=== PATIENT | male | born 1960 | race Hispanic/Latino ===

== ENCOUNTER 2016-10-31 12:06 | Emergency (ER) | payer MEDICAID, OTHER ==
[2016-10-31 12:32] VITALS: BMI 23.4
[2016-10-31 13:11] LABS: BASO # 0.1 K/uL (0.0-0.2); EOS # 0.3 K/uL (0.0-0.7); EOS % 4.4 % (0.0-4.0); HEMATOCRIT 34.6 % (35.0-51.0); LYMPH # 1.4 K/uL (1.0-4.3); LYMPH % 22.7 % (20.0-40.0); MEAN CELL VOLUME 86.6 fL (80.0-94.0); MEAN CORPUSCULAR HEMOGLOBIN 28.5 pg (27.0-31.0); MEAN CORPUSCULAR HGB CONC 32.9 g/dL (33.0-37.0); MEAN PLATELET VOLUME 7.4 fL (7.2-11.7); MONO # 0.7 K/uL (0.0-0.8); MONO % 10.9 % (0.0-10.0); RED CELL DISTRIBUTION WIDTH 14.8 % (11.5-14.5); WHITE BLOOD COUNT 6.3 K/uL (4.8-10.8)
--- NOTE | 2016-10-31 13:23 | C.PDOC ---
History Of Present Illness 56 y/o male presents to ED with complaints of lower extremities weakness as per EMS. Patient was found wondering the streets appearing to have an unsteady gait. At ED patient admits to taken 3-4 Percocets for pain and to being an alcoholic. Patient has multiple chronic orthopedic injuries such as Fracture to right clavicle and bilateral damage to knees. Patient denies N/V/D, [place], Fever or any other complaints at this time. Time Seen by Provider: 10/31/16 12:09 Chief Complaint (Nursing): Substance Abuse History Per: Patient History/Exam Limitations: no limitations Onset/Duration Of Symptoms: Hrs Current Symptoms Are (Timing): Still Present Modifying Factor(s): Alcohol Past Medical History Reviewed: Historical Data, Nursing Documentation, Vital Signs Vital Signs: Last Vital Signs Temp 98.5 F 10/31/16 12:31 Pulse 100 H 10/31/16 13:09 Resp 12 10/31/16 13:09 BP 101/98 H 10/31/16 13:09 Pulse Ox 94 L 10/31/16 14:35 - Medical History PMH: Anxiety, Arthritis, Asthma, COPD, Depression, Emphysema Family History: States: No Known Family Hx - Social History Hx Tobacco Use: Yes Hx Alcohol Use: No Hx Substance Use: Yes - Immunization History Hx Tetanus Toxoid Vaccination: No Hx Influenza Vaccination: Yes Hx Pneumococcal Vaccination: Yes Review Of Systems Except As Marked, All Systems Reviewed And Found Negative. Constitutional: Negative for: Fever, Chills Gastrointestinal: Negative for: Nausea, Vomiting, Diarrhea Skin: Negative for: Rash Neurological: Positive for: Weakness. Negative for: Numbness, Headache Physical Exam - Physical Exam Appears: Unkempt Skin: Warm Head: Atraumatic, Normacephalic Eye(s): bilateral: Normal Inspection Oral Mucosa: Moist Neck: Normal ROM Cardiovascular: Rhythm Regular, No Murmur Respiratory: Normal Breath Sounds, No Rales, No Rhonchi, No Wheezing Gastrointestinal/Abdominal: Soft, No Tenderness, No Guarding, No Rebound Extremity: Normal ROM, Deformity (Deformity to Right Clavicle), Other (Scars over both knees) Neurological/Psych: Oriented x3, Normal Motor, Normal Sensation, Normal Reflexes ED Course And Treatment - Laboratory Results Result Diagrams: 10/31/16 13:06 10/31/16 13:06 O2 Sat by Pulse Oximetry: 94 (RA) Pulse Ox Interpretation: Normal Medical Decision Making Medical Decision Making: Patient slept. Now has no complaints, requesting to go home. Disposition - Disposition Referrals: [facility] [Outside] Disposition: HOME/ ROUTINE Disposition Time: 14:41 Condition: STABLE Instructions: Weakness (ED) Forms: General Discharge Instructions - POA Present On Arrival: None - Clinical Impression Clinical Impression: Weakness - Scribe Statement The provider has reviewed the documentation as recorded by the Scribtian Neely All medical record entries made by the Scribe were at my direction and personally dictated by me. I have reviewed the chart and agree that the record accurately reflects my personal performance of the history, physical exam, medical decision making, and the department course for this patient. I have also personally directed, reviewed, and agree with the discharge instructions and disposition.
[2016-10-31 13:27] LABS: CHLORIDE 106 mmol/L (98-107); POTASSIUM 3.8 mmol/L (3.6-5.2); SODIUM 143 mmol/L (132-148)
[2016-10-31 13:29] LABS: BILIRUBIN,TOTAL 0.4 mg/dL (0.2-1.3); CARBON DIOXIDE 27 mmol/L (22-30); GFR AFRICAN-AMERICAN > 60
[2016-10-31 13:30] LABS: ALB/GLOB RATIO 1.2 (1.0-2.1); ALCOHOL SERUM < 10 mg/dl (0-10); ALKALINE PHOSPHATASE 85 U/L (38-126); ALT/SGPT 19 U/L (21-72); AST/SGOT 23 U/L (17-59); BLOOD UREA NITROGEN 18 mg/dL (9-20); CALCIUM 9.6 mg/dl (8.6-10.4); GLUCOSE,RANDOM 87 mg/dL (75-110); TOTAL PROTEIN 6.7 g/dL (6.3-8.3)
[2016-10-31 15:14] VITALS: BP 113/65; PULSE 89; RESP 14; TEMP 97.9; O2SAT 99
== END 2016-10-31 15:15 | disposition home or self-care (01) ==
LOC: C.ER 12:06
DX: R53.1 Weakness (principal); M19.90 Unspecified osteoarthritis, unspecified site

== ENCOUNTER 2016-12-16 20:03 | Observation (INO) | payer OTHER ==
[2016-12-16 20:03] VITALS: BMI 23.4
--- NOTE | 2016-12-16 20:09 | C.PDOC ---
History Of Present Illness Patient brought to the ER via EMS after being found on the street lethargic. Patient is somewhat arousable, states he used xanax. Denies suicidal ideation or homicidal ideation. Time Seen by Provider: 12/16/16 20:09 Chief Complaint (Nursing): Substance Abuse History Per: Patient History/Exam Limitations: no limitations Onset/Duration Of Symptoms: Hrs Current Symptoms Are (Timing): Still Present Suicide/Self Injury Attempted (Context): None Modifying Factor(s): Other (Xanax) Severity: None Pain Scale Rating Of: 0 Associated Symptoms: denies: Suicidal Thoughts, Suicidal Plan Involuntary Hold By: None Recent travel outside of the [place]: No Past Medical History Reviewed: Historical Data, Nursing Documentation, Vital Signs Vital Signs: Last Vital Signs Temp Pulse 79 12/17/16 04:12 Resp 86 H 12/17/16 04:12 BP 85/46 L 12/17/16 04:12 Pulse Ox 97 12/17/16 04:12 - Medical History PMH: Anxiety, Arthritis, Asthma, COPD, Depression, Emphysema Surgical History: No Surg Hx Family History: States: No Known Family Hx - Social History Hx Tobacco Use: Yes Hx Alcohol Use: No Hx Substance Use: Yes - Immunization History Hx Tetanus Toxoid Vaccination: No Hx Influenza Vaccination: Yes Hx Pneumococcal Vaccination: Yes Review Of Systems Constitutional: Positive for: Other (Lethargic). Negative for: Fever, Chills Gastrointestinal: Negative for: Nausea, Vomiting, Diarrhea Psych: Negative for: Suicidal ideation Physical Exam - Physical Exam Appears: Non-toxic, Other (Slow to respond) Skin: Warm, Dry Head: Normacephalic, Laceration (Healing over right eyebrow) Oral Mucosa: Moist Chest: Symmetrical, No Tenderness Cardiovascular: Rhythm Regular, No Murmur Respiratory: No Rales, No Rhonchi, No Wheezing Gastrointestinal/Abdominal: Soft, No Tenderness Neurological/Psych: Oriented x3 ED Course And Treatment - Laboratory Results Result Diagrams: 12/16/16 20:18 12/16/16 20:18 O2 Sat by Pulse Oximetry: 100 Pulse Ox Interpretation: Normal - Radiology CXR: Interpreted by Me, Viewed By Me Progress Note: Blood work and urinalysis ordered. IV fluids administered. pt is arousable, answers questions appropriately. 11:05 vitals stable Reevaluation Time: 05:46 Reassessment Condition: Improved ED OBSERVATION Discharge: Yes Date of observation admission: 12/16/16 Time of observation admission: 23:03 - Observation admission statement Patient is being placed in observation because:: xanax od - Goals of Observation Goals of observation are:: sobriety - Progress Note Progress Note: 12/16/16 23:03 vitals stable 12/17/16 01:10 vitals stable, arousable 12/17/16 03:10 no complaints Disposition Counseled Patient/Family Regarding: Studies Performed, Diagnosis, Need For Followup - Disposition Disposition: HOME/ ROUTINE Disposition Time: 20:09 Condition: FAIR - Clinical Impression Clinical Impression: Drug abuse, OD (overdose of drug) - Scribe Statement The provider has reviewed the documentation as recorded by the Scribtian Hays All medical record entries made by the Jonnyibtian were at my direction and personally dictated by me. I have reviewed the chart and agree that the record accurately reflects my personal performance of the history, physical exam, medical decision making, and the department course for this patient. I have also personally directed, reviewed, and agree with the discharge instructions and disposition.
[2016-12-16] MEDS ORDERED: Sodium Chloride 0.9% 1,000 ML ONE (20:11)
[2016-12-16] MEDS ORDERED: Sodium Chloride 0.9% 2,000 ML IV ONE (20:15)
[2016-12-16 20:21] LABS: BASO # 0.1 K/uL (0.0-0.2); BASO % 0.8 % (0.0-2.0); EOS # 0.3 K/uL (0.0-0.7); EOS % 3.9 % (0.0-4.0); HEMATOCRIT 38.5 % (35.0-51.0); LYMPH # 1.3 K/uL (1.0-4.3); LYMPH % 17.9 % (20.0-40.0); MEAN CELL VOLUME 85.2 fL (80.0-94.0); MEAN CORPUSCULAR HEMOGLOBIN 28.2 pg (27.0-31.0); MEAN PLATELET VOLUME 7.1 fL (7.2-11.7); MONO # 0.8 K/uL (0.0-0.8); MONO % 11.5 % (0.0-10.0); NRBC % 0.1 % (0.0-2.0); RED CELL DISTRIBUTION WIDTH 15.1 % (11.5-14.5); WHITE BLOOD COUNT 7.3 K/uL (4.8-10.8)
[2016-12-16 21:22] LABS: CHLORIDE 97 mmol/L (98-107); POTASSIUM 3.9 mmol/L (3.6-5.2); SODIUM 137 mmol/L (132-148)
[2016-12-16 21:24] LABS: ALB/GLOB RATIO 1.1 (1.0-2.1); ALKALINE PHOSPHATASE 95 U/L (38-126); AST/SGOT 46 U/L (17-59); BILIRUBIN,TOTAL 0.7 mg/dL (0.2-1.3); CARBON DIOXIDE 29 mmol/L (22-30); GFR AFRICAN-AMERICAN > 60; TOTAL PROTEIN 6.7 g/dL (6.3-8.3)
[2016-12-16 21:25] LABS: ALCOHOL SERUM < 10 mg/dl (0-10); ALT/SGPT 34 U/L (21-72); BLOOD UREA NITROGEN 15 mg/dL (9-20); CALCIUM 9.1 mg/dl (8.6-10.4); GLUCOSE,RANDOM 90 mg/dL (75-110)
[2016-12-16] MEDS ORDERED: Sodium Chloride 0.9% 2,000 ML ONE (22:48)
[2016-12-16] MEDS ORDERED: Sodium Chloride 0.9% 1,000 ML IV ONE (22:52)
[2016-12-17 06:09] VITALS: BP 96/56; PULSE 75; RESP 18; O2SAT 96
== END 2016-12-17 05:46 | disposition home or self-care (01) ==
LOC: C.ER 20:03 → C.9OBSV 23:03
PROVIDERS: ADMIT Emergency Medicine; ATTEND Emergency Medicine
DX: T42.4X4A Poisoning by benzodiazepines, undetermined, initial encounter (principal); R53.83 Other fatigue; F19.188 Other psychoactive substance abuse with other psychoactive substance-induced disorder; F41.9 Anxiety disorder, unspecified; J45.909 Unspecified asthma, uncomplicated; F32.9 Major depressive disorder, single episode, unspecified; J43.9 Emphysema, unspecified; F17.210 Nicotine dependence, cigarettes, uncomplicated
CPT/HCPCS: 80053; 80320; 82948; 85025; 96360; 96361; G0378; J7040

== ENCOUNTER 2017-02-20 10:47 | Inpatient (IN) | payer MEDICAID, OTHER ==
[2017-02-20 10:47] VITALS: BMI 23.4
--- NOTE | 2017-02-20 11:09 | C.PDOC ---
History Of Present Illness 56 yr old male presents to the ER with complaints of recurring suicidal ideation with a plan and depression. Patient reports last herpin use was last night and Xanax several days ago. Patient denies alcohol use, IVDA, prior evaluation of OD and psych. Also denies chest pain, SOB, nausea, vomiting or headache. CO RECUR SUICIDAL IDEATION, DEPRESSION. +PLAN. LAST HEROIN LAST NIGHT, XANAX SEV DAYS AGO. DENIES ETOH USE. DENIES IVDA. PRIOR EVAL FOR OD, PSYCH. ALSO CO GEN RASH X SEV MONTHS. +itch. DENIES IVDA, SKIN POPPING. EXAM MILD DIST NONTOXIC PSYCH +SI. NO ACUTE INTOX. CALM COOPERATIVE TEARFUL SKIN GEN EXCORIATIONS Time Seen by Provider: 02/20/17 10:57 Chief Complaint (Nursing): Psychiatric Evaluation History Per: Patient History/Exam Limitations: no limitations Onset/Duration Of Symptoms: Days Past Medical History Reviewed: Historical Data, Nursing Documentation, Vital Signs Vital Signs: Last Vital Signs Temp 97.8 F 02/20/17 13:08 Pulse 64 02/20/17 13:08 Resp 16 02/20/17 13:08 BP 96/61 L 02/20/17 13:08 Pulse Ox 99 02/20/17 13:08 - Medical History PMH: Anxiety, Arthritis, Asthma, COPD, Depression, Emphysema Family History: States: No Known Family Hx - Social History Hx Tobacco Use: Yes Hx Alcohol Use: Yes Hx Substance Use: Yes - Immunization History Hx Tetanus Toxoid Vaccination: No Hx Influenza Vaccination: Yes (01/2017) Hx Pneumococcal Vaccination: Yes Review Of Systems Except As Marked, All Systems Reviewed And Found Negative. Cardiovascular: Negative for: Chest Pain Respiratory: Negative for: Shortness of Breath Gastrointestinal: Negative for: Nausea, Vomiting Neurological: Negative for: Headache Psych: Positive for: Depression, Suicidal ideation Physical Exam - Physical Exam Appears: Non-toxic, In Acute Distress (Mild) Skin: Warm, Dry, No Rash, Other ((+) General excoriations.) Head: Atraumatic, Normacephalic Extremity: Normal ROM, No Swelling Neurological/Psych: Oriented x3, Normal Speech, Other (No acute intoxication. Calm. Cooperative. Tearful.) ED Course And Treatment - Laboratory Results Result Diagrams: 02/20/17 11:29 02/20/17 11:29 O2 Sat by Pulse Oximetry: 99 (RA) Pulse Ox Interpretation: Normal Progress - Re-Evaluation Re-evaluation Note: 02/20/17 12:44 EXMA [facility] PRIOR MED CLEAR FOR PSYCH EVAL. RECOMMEND MEDICINE CONSULT NEEDED FOR MANAGEMENT CHRONIC DERMATITIS, MOST LIKELY DUE TO HEROIN ABUSE. NO SIGNS INFECTIOUS/ COMMUNICABLE DERMATITIS. 02/20/17 12:44 CRISIS NOTIFIED - Data Reviewed Data Reviewed: Lab - Continuity of Care Discussed pt. case with telecommunications consultant/specialty: Psychiatry Medical Decision Making Medical Decision Making: PLAN: * Alcohol Serum * Drug Screen * CBC * CMP * Urinalysis Disposition Counseled Patient/Family Regarding: Studies Performed, Diagnosis - Disposition Disposition: HOSPITALIZED Disposition Time: 13:18 Condition: STABLE Forms: Wireless Safety (Swedish) - POA Present On Arrival: None - Clinical Impression Clinical Impression: Depression, Polysubstance abuse, Pruritic dermatitis - Scribe Statement The provider has reviewed the documentation as recorded by the Scribe Melissa Pena Provider Attestation: All medical record entries made by the Scribe were at my direction and personally dictated by me. I have reviewed the chart and agree that the record accurately reflects my personal performance of the history, physical exam, medical decision making, and the department course for this patient. I have also personally directed, reviewed, and agree with the discharge instructions and disposition. Decision To Admit - Pt Status Changed To: Hospital Disposition Of: Inpatient - Admit Certification Admit to Inpatient:: After my assessment, the patient will require hospitalization for at least two midnights. This is because of the severity of symptoms shown, intensity of services needed, and/or the medical risk in this patient being treated as an outpatient. - InPatient: Physician Admission Certification: I certify that this patient requires 2 or more midnights of care for the following reason:: SEE NOTE - . Bed Request Type: Psychiatry Admitting Physician: Viki Angela Patient Diagnosis: Depression, Polysubstance abuse, Pruritic dermatitis
[2017-02-20 11:33] LABS: BASO # 0.1 K/uL (0.0-0.2); BASO % 1.4 % (0.0-2.0); EOS # 0.4 K/uL (0.0-0.7); HEMATOCRIT 34.6 % (35.0-51.0); LYMPH # 1.3 K/uL (1.0-4.3); LYMPH % 19.8 % (20.0-40.0); MEAN CORPUSCULAR HEMOGLOBIN 28.7 pg (27.0-31.0); MEAN CORPUSCULAR HGB CONC 33.7 g/dL (33.0-37.0); MEAN PLATELET VOLUME 6.8 fL (7.2-11.7); MONO # 0.6 K/uL (0.0-0.8); MONO % 9.7 % (0.0-10.0); RED CELL DISTRIBUTION WIDTH 16.8 % (11.5-14.5); WHITE BLOOD COUNT 6.4 K/uL (4.8-10.8)
[2017-02-20 11:50] LABS: RBC URINE 199 /hpf (0-3); URINE BILIRUBIN NEGATIVE (NEGATIVE); URINE BLOOD 3+ (NEGATIVE); URINE COLOR Yellow (YELLOW); URINE GLUCOSE (UA) NORMAL (Normal); URINE KETONE TRACE mg/dL (NEGATIVE); URINE LEUKOCYTE ESTERASE NEG Leu/uL (Negative); URINE PROTEIN NEGATIVE (NEGATIVE); URINE UROBILINOGEN NORMAL mg/dL (0.2-1.0); WBC URINE 1 /hpf (0-5)
[2017-02-20 11:57] LABS: CHLORIDE 100 mmol/L (98-107)
[2017-02-20 11:58] LABS: POTASSIUM 3.7 mmol/L (3.6-5.2)
[2017-02-20 12:00] LABS: ALKALINE PHOSPHATASE 68 U/L (38-126); AST/SGOT 23 U/L (17-59); BILIRUBIN,TOTAL 0.6 mg/dL (0.2-1.3); BLOOD UREA NITROGEN 11 mg/dL (9-20); CARBON DIOXIDE 27 mmol/L (22-30); GFR AFRICAN-AMERICAN > 60; TOTAL PROTEIN 7.4 g/dL (6.3-8.3)
[2017-02-20 12:01] LABS: ALCOHOL SERUM < 10 mg/dl (0-10); ALT/SGPT 26 U/L (21-72); CALCIUM 9.2 mg/dl (8.6-10.4); GLUCOSE,RANDOM 89 mg/dL (75-110)
[2017-02-20 12:04] LABS: SODIUM 136 mmol/L (132-148)
--- NOTE | 2017-02-20 14:43 | PCM.BM ---
<Carmen Westbrook - Last Filed: 02/20/17 14:40> Treatment Plan Problems - Problems identified on initial assessmt Depression Date Initiated: 02/20/17 Time Initiated: 13:50 Assessment reference: NA Status: Active Suicidal Ideation Date Initiated: 02/20/17 Time Initiated: 13:50 Assessment reference: NA Status: Active Treatment assets and liabiliti Patient Assests: cooperative, ADL independent, negotiates basic needs, cognitively intact Patient Liabilities: live alone (Homeless), financial problems, poor support system, substance abuse (Opiates), medical problems (COPD, Asthma, Athritis, left knee surgeries x4) - Milieu Protocol Maintain good personal hygiene: daily Encourage regular showers, daily Remind patient to perform daily oral care, other Assist patient to perform ADL's (Self) Conduct patient checks and document Observation sheet: Q15 minutes (Safety) Maintain personal safety: every shift Educate patient to report safety concerns to staff, every shift Monitor environment for contraband/sharps Medication safety: Monitor for expected outcome, potential side effects: every shift, Assess barriers to learning: every shift, Assess readiness for medication education: every shift <Viki Angela - Last Filed: 02/22/17 12:47> - Diagnosis (1) Depression Status: Acute Interventions: 02/22/17 12:47 * Assess/adjust medications daily and /or as needed * See patient on an individual basis 7x/week to assess symptoms of depression * Monitor for side effects & effectiveness of medications * (2) Opioid use disorder, severe, dependence Status: Acute Interventions: 02/22/17 12:48 * Assess 7x/week regarding severity of withdrawal * Educate regarding risks, benefits, side effects and alternatives of medications * Use Motivational Interviewing for abstinence * Use CBT for relapse prevention * Medication management for withdrawal symptoms * Encourage medication assisted treatment * <Jeanne Marino - Last Filed: 02/24/17 11:36> Family Contact Family involvement: Famliy/SO not involved - Goals for Treatment Patient goals for treatment: "I want to go to rehab at [facility]." Discharge/Continuing Care - Education Needs Education Needs: Patient Medication, Patient Coping Skills, Patient Placement options, Patient Community resources - Discharge Discharge Criteria: Tolerates medication w/o severe side effects, Free of Suicidal thoughts Discharge to:: Substance Abuse Rehab - Treatment Team Participation Discussed with Family/SO: No Was Patient/Family/SO present at Treatment Team Meeting: Yes <Lino Faria - Last Filed: 02/28/17 15:06> - Diagnosis (1) Major depressive disorder, recurrent severe without psychotic features Status: Acute Interventions: Assess/adjust medications daily and/or as needed SEE patient on him individual basis 7x/week to assess status of hallucinations. Discuss risks, benefits, side effects and alternatives of medications. 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
[2017-02-20] MEDS ORDERED: Permethrin 5% Cream(60 gm) TOP SCH (16:00)
--- NOTE | 2017-02-20 16:01 | CP.PCM.CON ---
<SuadJannette - Last Filed: 02/20/17 16:06> History of Present Illness - History of Present Illness History of Present Illness: Internal Medicine Consult for Dr. Lima 56M presents for depression and suicidal ideation with a past medical history of heroine and xanax abuse. Patient is admitted to psychiatry. Internal medicine consulted for excoriations on patient's body. Patient states the pruritis began between should blades in October 2016 and progressively spread Patient admits to pruritis of extremities, chest, and back. Patient states he never slept on dirty or old mattress or used old blankets. Patient has been homeless for one year and has abuse 5-10 bags of heroine with 2 bars of xanax. Patient does not have a good diet due to using money on illicit drugs. Patient states he does not inject drugs, but inhales them. Patient denies fever, chills, constipation, diarrhea, nausea, urinary issues. PMH: emphysema, COPD PSH: none Social history: no smoking, heroine and xanax abuse. Allergies None PMD: none Past Patient History - Infectious Disease Hx of Infectious Diseases: None - Past Medical History & Family History Past Medical History?: Yes - Past Social History Smoking Status: Light Smoker < 10 Cigarettes Daily - CARDIAC Hx Cardiac Disorders: No Hx Hypertension: No - PULMONARY Hx Asthma: Yes Hx Chronic Obstructive Pulmonary Disease (COPD): Yes Hx Emphysema: Yes - NEUROLOGICAL HX Cerebrovascular Accident: No Hx Seizures: No - HEENT Hx HEENT Problems: No - RENAL Hx Chronic Kidney Disease: No - ENDOCRINE/METABOLIC Hx Endocrine Disorders: No - HEMATOLOGICAL/ONCOLOGICAL Hx Cancer: No Hx Human Immunodeficiency Virus (HIV): No - INTEGUMENTARY Hx Dermatological Problems: Yes Other/Comment: generalized rashes and open lesions. Pt placed in a private rooom till a diagnosis is obtained. Consult ordered. - MUSCULOSKELETAL/RHEUMATOLOGICAL Hx Arthritis: Yes - GASTROINTESTINAL Hx Gastrointestinal Disorders: No - GENITOURINARY/GYNECOLOGICAL Hx Sexually Transmitted Disorders: No - PSYCHIATRIC Hx Substance Use: Yes (heroin/ xanax) - SURGICAL HISTORY Hx Surgeries: Yes (L knee surgeries, x4) Hx Orthopedic Surgery: Yes (left knee x 4) - ANESTHESIA Hx Anesthesia: Yes Hx Anesthesia Reactions: No Hx Malignant Hyperthermia: No Meds Allergies/Adverse Reactions: Allergies Allergy/AdvReac Type Severity Reaction Status Date / Time No Known Allergies Allergy Verified 02/20/17 10:56 - Medications Medications: Current Medications Hydrocortisone (Cortizone 1% Cream) 1 gm TOP BID FARTUN Permethrin (Permethrin 5% Cream) 1 gm TOP DAILY FARTUN Physical Exam - Constitutional Appears: Non-toxic - Head Exam Head Exam: NORMAL INSPECTION - Eye Exam Eye Exam: EOMI, Normal appearance - ENT Exam ENT Exam: Mucous Membranes Moist - Neck Exam Neck exam: Positive for: Full Rom - Respiratory Exam Respiratory Exam: Decreased Breath Sounds. absent: Accessory Muscle Use, Respiratory Distress - Cardiovascular Exam Cardiovascular Exam: REGULAR RHYTHM, +S1, +S2 - GI/Abdominal Exam GI & Abdominal Exam: Soft. absent: Tenderness - Extremities Exam Extremities exam: Positive for: pedal edema (right pedal edema), tenderness ( bottom of right foot) Additional comments: no bullae, areas of erythema and swelling. - Back Exam Back exam: FULL ROM Additional comments: shoulder area and upper thorax has areas of excoriations and scabs - Neurological Exam Neurological exam: Alert, Normal Gait, Oriented x3 - Psychiatric Exam Psychiatric exam: Depressed, Flat Affect - Skin Additional comments: sun damage upper extremity. tattoos visualized. track like scab harmon on left forearm. no interdigital wounds noted. should blade, upper thoracic multiple scabs, scratch harmon, and excoriations legs have multiple large scabs. right buttock has one scab outer thighs have scabs Results - Vital Signs Recent Vital Signs: Last Vital Signs Temp 97.8 F 02/20/17 13:08 Pulse 64 02/20/17 13:08 Resp 16 02/20/17 13:08 BP 96/61 L 02/20/17 13:08 Pulse Ox 99 02/20/17 13:25 - Labs Result Diagrams: 02/20/17 11:29 02/20/17 11:29 Labs: Laboratory Results - last 24 hr 02/20/17 02/20/17 02/20/17 11:29 11:29 11:39 WBC 6.4 RBC 4.07 L Hgb 11.6 L Hct 34.6 L MCV 85.0 MCH 28.7 MCHC 33.7 RDW 16.8 H Plt Count 296 MPV 6.8 L Neut % (Auto) 63.1 Lymph % (Auto) 19.8 L [place] % (Auto) 9.7 Eos % (Auto) 6.0 H Baso % (Auto) 1.4 Neut # 4.0 Lymph # 1.3 [place] # 0.6 Eos # 0.4 Baso # 0.1 Sodium 136 Potassium 3.7 Chloride 100 Carbon Dioxide 27 Anion Gap 13 BUN 11 Creatinine 0.7 L Est GFR ( Amer) > 60 Est GFR (Non-Af Amer) > 60 Random Glucose 89 Calcium 9.2 Total Bilirubin 0.6 AST 23 ALT 26 Alkaline Phosphatase 68 Total Protein 7.4 Albumin 3.6 Globulin 3.7 Albumin/Globulin Ratio 1.0 Urine Color Yellow Urine Clarity Clear Urine pH 5.0 Ur Specific [place] 1.016 Urine Protein Negative Urine Glucose (UA) Normal Urine Ketones Trace Urine Blood 3+ H Urine Nitrate Negative Urine Bilirubin Negative Urine Urobilinogen Normal Ur Leukocyte Esterase Neg Urine WBC (Auto) 1 Urine RBC (Auto) 199 H Ur Squamous Epith Cells < 1 Urine Opiates Screen Urine Methadone Screen Ur Barbiturates Screen Ur Phencyclidine Scrn Ur Amphetamines Screen U Benzodiazepines Scrn U Oth Cocaine Metabols U Cannabinoids Screen Alcohol, Quantitative < 10 02/20/17 11:39 WBC RBC Hgb Hct MCV MCH MCHC RDW Plt Count MPV Neut % (Auto) Lymph % (Auto) [place] % (Auto) Eos % (Auto) Baso % (Auto) Neut # Lymph # [place] # Eos # Baso # Sodium Potassium Chloride Carbon Dioxide Anion Gap BUN Creatinine Est GFR ( Amer) Est GFR (Non-Af Amer) Random Glucose Calcium Total Bilirubin AST ALT Alkaline Phosphatase Total Protein Albumin Globulin Albumin/Globulin Ratio Urine Color Urine Clarity Urine pH Ur Specific [place] Urine Protein Urine Glucose (UA) Urine Ketones Urine Blood Urine Nitrate Urine Bilirubin Urine Urobilinogen Ur Leukocyte Esterase Urine WBC (Auto) Urine RBC (Auto) Ur Squamous Epith Cells Urine Opiates Screen Positive Urine Methadone Screen Negative Ur Barbiturates Screen Negative Ur Phencyclidine Scrn Negative Ur Amphetamines Screen Negative U Benzodiazepines Scrn Positive U Oth Cocaine Metabols Negative U Cannabinoids Screen Negative Alcohol, Quantitative Assessment & Plan - Assessment and Plan (Free Text) Assessment: Excoriations of shoulders, lower back, chest, arms, and legs History of being homeless, possible scabies Permethrin Cream to affected areas daily hydrocortisone cream to affected areas daily follow up Echo Pedal Edema, with erythema Follow up foot xray COPD/Emphysema Patient's vitals are stable Depression continue with current medical management per primary team discussed with Dr. Janie Borjas DO PGY1 - Date & Time Date: 02/20/17 Time: 15:57 <Rubén Lima - Last Filed: 02/20/17 18:09> Meds - Medications Medications: Current Medications Albuterol (Ventolin Hfa 90 Mcg/Actuation (8 G)) 1 puff INH RQ4 PRN PRN Reason: SOB Last Admin: 02/20/17 17:45 Dose: 1 puff Escitalopram Oxalate (Lexapro) 5 mg PO DAILY FARTUN Last Admin: 02/20/17 16:43 Dose: 5 mg Gabapentin (Neurontin) 300 mg PO TID FARTUN Hydrocortisone (Cortizone 1% Cream) 1 gm TOP BID FARTUN Last Admin: 02/20/17 17:46 Dose: 1 appl Hydroxyzine HCl (Atarax) 50 mg PO Q6H PRN PRN Reason: Anxiety Last Admin: 02/20/17 17:06 Dose: 50 mg Ibuprofen (Motrin Tab) 600 mg PO Q6H PRN PRN Reason: Pain, moderate (4-7) Methadone HCl (Methadone) 20 mg PO ONCE ONE Stop: 02/20/17 18:31 Montelukast Sodium (Singulair) 10 mg PO HS FARTUN Permethrin (Permethrin 5% Cream) 1 gm TOP DAILY [facility] Last Admin: 02/20/17 17:48 Dose: 1 applic Trazodone HCl (Desyrel) 100 mg PO HS PRN PRN Reason: Insomnia Results - Vital Signs Recent Vital Signs: Last Vital Signs Temp 97.8 F 02/20/17 13:08 Pulse 67 02/20/17 16:12 Resp 18 02/20/17 16:12 BP 89/58 L 02/20/17 16:12 Pulse Ox 99 02/20/17 13:25 - Labs Result Diagrams: 02/20/17 11:29 02/20/17 11:29 Labs: Laboratory Results - last 24 hr 02/20/17 02/20/17 02/20/17 11:29 11:29 11:39 WBC 6.4 RBC 4.07 L Hgb 11.6 L Hct 34.6 L MCV 85.0 MCH 28.7 MCHC 33.7 RDW 16.8 H Plt Count 296 MPV 6.8 L Neut % (Auto) 63.1 Lymph % (Auto) 19.8 L [place] % (Auto) 9.7 Eos % (Auto) 6.0 H Baso % (Auto) 1.4 Neut # 4.0 Lymph # 1.3 [place] # 0.6 Eos # 0.4 Baso # 0.1 Sodium 136 Potassium 3.7 Chloride 100 Carbon Dioxide 27 Anion Gap 13 BUN 11 Creatinine 0.7 L Est GFR ( Amer) > 60 Est GFR (Non-Af Amer) > 60 Random Glucose 89 Calcium 9.2 Total Bilirubin 0.6 AST 23 ALT 26 Alkaline Phosphatase 68 Total Protein 7.4 Albumin 3.6 Globulin 3.7 Albumin/Globulin Ratio 1.0 Urine Color Yellow Urine Clarity Clear Urine pH 5.0 Ur Specific [place] 1.016 Urine Protein Negative Urine Glucose (UA) Normal Urine Ketones Trace Urine Blood 3+ H Urine Nitrate Negative Urine Bilirubin Negative Urine Urobilinogen Normal Ur Leukocyte Esterase Neg Urine WBC (Auto) 1 Urine RBC (Auto) 199 H Ur Squamous Epith Cells < 1 Urine Opiates Screen Urine Methadone Screen Ur Barbiturates Screen Ur Phencyclidine Scrn Ur Amphetamines Screen U Benzodiazepines Scrn U Oth Cocaine Metabols U Cannabinoids Screen Alcohol, Quantitative < 10 02/20/17 11:39 WBC RBC Hgb Hct MCV MCH MCHC RDW Plt Count MPV Neut % (Auto) Lymph % (Auto) [place] % (Auto) Eos % (Auto) Baso % (Auto) Neut # Lymph # [place] # Eos # Baso # Sodium Potassium Chloride Carbon Dioxide Anion Gap BUN Creatinine Est GFR ( Amer) Est GFR (Non-Af Amer) Random Glucose Calcium Total Bilirubin AST ALT Alkaline Phosphatase Total Protein Albumin Globulin Albumin/Globulin Ratio Urine Color Urine Clarity Urine pH Ur Specific [place] Urine Protein Urine Glucose (UA) Urine Ketones Urine Blood Urine Nitrate Urine Bilirubin Urine Urobilinogen Ur Leukocyte Esterase Urine WBC (Auto) Urine RBC (Auto) Ur Squamous Epith Cells Urine Opiates Screen Positive Urine Methadone Screen Negative Ur Barbiturates Screen Negative Ur Phencyclidine Scrn Negative Ur Amphetamines Screen Negative U Benzodiazepines Scrn Positive U Oth Cocaine Metabols Negative U Cannabinoids Screen Negative Alcohol, Quantitative Attending/Attestation - Attestation I have personally seen and examined this patient.: Yes I have fully participated in the care of the patient.: Yes I have reviewed all pertinent clinical information: Yes Notes (Text): Medical Attending: Patient was seen and examined by me. Agree with the above note by the resident. Patient currently at 5E, medicine being consulted for skin lesions on the forearms as well as on the chest and neck areas and bilateral feet. They are very itchy to him. This being said the areas on the forearms actually look like injection track harmon. Considering his history will check echo thank you Rubén Lima
[2017-02-20] MEDS: Albuterol HFA 90 mcg/actuation (8 g) INH PRN (17:45)
[2017-02-20] MEDS: Hydrocortisone 1% Cream (30 GM) TOP SCH (17:46)
[2017-02-20] MEDS: Permethrin 5% Cream(60 gm) TOP SCH (17:48)
[2017-02-21] MEDS: Hydrocortisone 1% Cream (30 GM) TOP SCH ×2 (09:18→17:16)
[2017-02-21] MEDS: Albuterol HFA 90 mcg/actuation (8 g) INH PRN ×2 (09:19→17:16)
[2017-02-21] MEDS: Permethrin 5% Cream(60 gm) TOP SCH (09:20)
--- NOTE | 2017-02-21 10:06 | CP.PCM.PN ---
<SuadJannette - Last Filed: 02/21/17 13:23> Subjective - Date & Time of Evaluation Date of Evaluation: 02/21/17 Time of Evaluation: 10:05 - Subjective Subjective: Progress note for Dr. Lima Patient seen and examined at bedside. No acute events overnight. Patient states he's doing well and does not feel pruritis anymore with the cream. Patient denies chest pain, dizziness, shortness of breath, abdominal pain and foot pain. Objective - Vital Signs/Intake and Output Vital Signs (last 24 hours): Temp Pulse Resp BP Pulse Ox 97.8 F 67 18 89/58 L 99 02/20/17 13:08 02/20/17 16:12 02/20/17 16:12 02/20/17 16:12 02/20/17 13:25 - Medications Medications: Current Medications Albuterol (Ventolin Hfa 90 Mcg/Actuation (8 G)) 1 puff INH RQ4 PRN PRN Reason: SOB Last Admin: 02/21/17 09:19 Dose: 1 puff Escitalopram Oxalate (Lexapro) 5 mg PO DAILY [facility] Last Admin: 02/21/17 09:18 Dose: 5 mg Gabapentin (Neurontin) 300 mg PO TID [facility] Last Admin: 02/21/17 09:18 Dose: 300 mg Hydrocortisone (Cortizone 1% Cream) 1 gm TOP BID [facility] Last Admin: 02/21/17 09:18 Dose: 1 appl Hydroxyzine HCl (Atarax) 50 mg PO Q6H PRN PRN Reason: Anxiety Last Admin: 02/20/17 17:06 Dose: 50 mg Ibuprofen (Motrin Tab) 600 mg PO Q6H PRN PRN Reason: Pain, moderate (4-7) Methadone HCl (Methadone) 15 mg PO Q24H FARTUN PRN Reason: Taper Stop: 02/25/17 09:59 Last Admin: 02/21/17 09:17 Dose: 15 mg Montelukast Sodium (Singulair) 10 mg PO HS [facility] Last Admin: 02/20/17 22:29 Dose: Not Given Permethrin (Permethrin 5% Cream) 1 gm TOP DAILY [facility] Last Admin: 02/21/17 09:20 Dose: 1 applic Trazodone HCl (Desyrel) 100 mg PO HS PRN PRN Reason: Insomnia - Labs Labs: 02/20/17 11:29 02/20/17 11:29 - Constitutional Appears: Non-toxic - Head Exam Head Exam: NORMAL INSPECTION - Eye Exam Eye Exam: EOMI, Normal appearance - ENT Exam ENT Exam: Mucous Membranes Moist - Neck Exam Neck Exam: Full ROM. absent: Tenderness - Respiratory Exam Respiratory Exam: NORMAL BREATHING PATTERN. absent: Accessory Muscle Use, Respiratory Distress - Cardiovascular Exam Cardiovascular Exam: REGULAR RHYTHM, +S1, +S2. absent: Bradycardia, Tachycardia - GI/Abdominal Exam GI & Abdominal Exam: Soft. absent: Tenderness - Extremities Exam Extremities Exam: Full ROM, Normal Inspection. absent: Pedal Edema - Neurological Exam Neurological Exam: Alert, Awake, Oriented x3 - Psychiatric Exam Psychiatric exam: Normal Affect, Normal Mood - Skin Skin Exam: Dry, Warm. absent: Intact Assessment and Plan - Assessment and Plan (Free Text) Assessment: Excoriations of shoulders, lower back, chest, arms, and legs History of being homeless, possible scabies Permethrin Cream to affected areas daily hydrocortisone cream to affected areas daily follow up Echo Pedal Edema, with erythema Follow up foot xray, awaiting final read COPD/Emphysema Patient's vitals are stable Depression continue with current medical management per primary team discussed with Dr. Janie Borjas DO PGY1 <Rubén Lima - Last Filed: 02/21/17 17:08> Objective - Vital Signs/Intake and Output Vital Signs (last 24 hours): Temp Pulse Resp BP Pulse Ox 97.8 F 67 18 89/58 L 99 02/20/17 13:08 02/20/17 16:12 02/20/17 16:12 02/20/17 16:12 02/20/17 13:25 - Medications Medications: Current Medications Albuterol (Ventolin Hfa 90 Mcg/Actuation (8 G)) 1 puff INH RQ4 PRN PRN Reason: SOB Last Admin: 02/21/17 09:19 Dose: 1 puff Escitalopram Oxalate (Lexapro) 10 mg PO DAILY FARTUN Gabapentin (Neurontin) 300 mg PO TID FARTUN Last Admin: 02/21/17 14:07 Dose: Not Given Hydrocortisone (Cortizone 1% Cream) 1 gm TOP BID FARTUN Last Admin: 02/21/17 09:18 Dose: 1 appl Hydroxyzine HCl (Atarax) 50 mg PO Q6H PRN PRN Reason: Anxiety Last Admin: 02/20/17 17:06 Dose: 50 mg Ibuprofen (Motrin Tab) 600 mg PO Q6H PRN PRN Reason: Pain, moderate (4-7) Methadone HCl (Methadone) 15 mg PO Q24H FARUTN PRN Reason: Taper Stop: 02/25/17 09:59 Last Admin: 02/21/17 09:17 Dose: 15 mg Montelukast Sodium (Singulair) 10 mg PO HS FARTUN Last Admin: 02/20/17 22:29 Dose: Not Given Permethrin (Permethrin 5% Cream) 1 gm TOP DAILY FARTUN Last Admin: 02/21/17 09:20 Dose: 1 applic Trazodone HCl (Desyrel) 100 mg PO HS PRN PRN Reason: Insomnia - Labs Labs: 02/20/17 11:29 02/20/17 11:29 Attending/Attestation - Attestation I have personally seen and examined this patient.: Yes I have fully participated in the care of the patient.: Yes I have reviewed all pertinent clinical information, including history, physical exam and plan: Yes
--- NOTE | 2017-02-21 11:25 | PCM.PSYCH ---
Initial Psychiatric Evaluation - Initial Psychiatric Evaluation Type of Admission: Voluntary Legal Status: Capacity Chief Complaint (in patient's own words): "Depressed" History of Present Illness and Precipitating Events: The patient is seen, chart reviewed and case discussed. This is a 56-year-old male, single with no child, homeless, on SSI. Known from previous admissions The patient reports feeling depressed, anhedonia, having suicidal thoughts and he had a plan of OD on Xanax and heroin. Denies it now but feels as depressed. He also sleeps poorly, eats poorly and his concentration and energy are low. The patient admits to using 5-10 bags intranasal heroin up until yesterday, but he used more in the past. He says that he uses Xanax 2 mg tab. 2-3 times a day now. Started 10 years ago. He describes no withdrawal symptoms yet or seizures ever. He denies drinking alcohol as he quit 6 years ago. He smokes 1/ ppd cigarettes and denies all the other drugs. He has been to detox twice and rehabilitation 4 times and he used longer methadone detox as an outpatient in the past but never been to any methadone maintenance program. The patient's stressors are homelessness and financial problems. He says he is trying to apply for housing and even though he had suicidal ideas he seems future oriented. Since he is an "ex-con," he believes he is not getting any housing help. Past psych history: Around 9 admissions. No suicide attempts Medical history: Knee pain, hip pain, severe asthma. He also has some skin lesions, med consult requested. Family psych history: Denies Current Medications: Active Medications Generic Name Dose Route Start Last Admin Trade Name Freq PRN Reason Stop Dose Admin Albuterol 1 puff 02/20/17 15:59 02/21/17 09:19 Ventolin Hfa 90 Mcg/Actuation (8 G) INH 1 puff RQ4 PRN Administration SOB Escitalopram Oxalate 5 mg 02/20/17 16:00 02/21/17 09:18 Lexapro PO 5 mg DAILY FARTUN Administration Gabapentin 300 mg 02/20/17 18:00 02/21/17 09:18 Neurontin PO 300 mg TID FARTUN Administration Hydrocortisone 1 gm 02/20/17 18:00 02/21/17 09:18 Cortizone 1% Cream TOP 1 appl BID FARTUN Administration Hydroxyzine HCl 50 mg 02/20/17 15:59 02/20/17 17:06 Atarax PO 50 mg Q6H PRN Administration Anxiety Ibuprofen 600 mg 02/20/17 15:59 Motrin Tab PO Q6H PRN Pain, moderate (4-7) Methadone HCl 15 mg 02/21/17 10:00 02/21/17 09:17 Methadone PO 02/25/17 09:59 15 mg Q24H FARTUN Administration Taper Montelukast Sodium 10 mg 02/20/17 22:00 02/20/17 22:29 Singulair PO Not Given HS FARTUN Permethrin 1 gm 02/20/17 17:45 02/21/17 09:20 Permethrin 5% Cream TOP 1 applic DAILY FARTUN Administration Trazodone HCl 100 mg 02/20/17 15:59 Desyrel PO HS PRN Insomnia Past Psychiatric History - Past Psychiatric History Previous Treatment History: Inpatient Pertinent Medical Hx (Current Medical&Sleep Prob, Allergies): Allergies Allergy/AdvReac Type Severity Reaction Status Date / Time No Known Allergies Allergy Verified 02/20/17 10:56 Albuterol HFA [Ventolin HFA 90 mcg/actuation (8 g)] 1 puff INH RQ4 PRN #1 inhaler 06/26/16 Montelukast [Singulair] 10 mg PO HS #30 tab 06/26/16 Mometasone/Formoterol [Dulera] 1 puff IH DAILY 02/20/17 Umeclidinium [place] [Incruse Ellipta] 1 puff IH DAILY 02/20/17 predniSONE [Prednisone] 10 mg PO DAILY 02/20/17 Review of Systems - Neurological Neurological: UNREMARKABLE - Psychiatric Psychiatric: Abnormal Sleep Pattern, Anxiety, Depression. absent: Hallucinations, Homicidal Ideation, Suicidal Ideation Mental Status Examination - Personal Presentation Personal Presentation: Looks older than stated age - Affect Affect: Constricted - Motor Activity Motor Activity: Calm - Reliability in Providing Information Reliability in Providing Information: Good - Speech Speech: Organized - Mood Mood: Depressed, Anxious - Formal Thought Process Formal Thought Process: No Impairment - Cognitive Functions Orientation: Person, Place, Situation, Time Sensorium: Alert Attention/Concentration: Attentive Estimate of Intelligence: Average Judgement: Intact, as evidence by: Insight regarding need for hospitalization Memory: Recent intact, as evidence by: Ability to recall events of the day, Remote intact, as evidenced by: Abilit to recall sig. 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
--- NOTE | 2017-02-21 12:58 | RAD ---
PROCEDURE: Right Foot Radiographs. HISTORY: foot pain, pedal edema COMPARISON: None. FINDINGS: BONES: Normal. No fracture. JOINTS: Mild arthritic changes. SOFT TISSUES: Diffuse soft tissue edema. OTHER FINDINGS: None. IMPRESSION: No evidence of acute fracture or dislocation.
[2017-02-22] MEDS: Permethrin 5% Cream(60 gm) TOP SCH (09:15)
[2017-02-22] MEDS: Hydrocortisone 1% Cream (30 GM) TOP SCH ×2 (09:16→17:50)
--- NOTE | 2017-02-22 14:53 | RAD ---
HISTORY: rhonchi. hx of emphysema COMPARISON: 05/21/2015 FINDINGS: LUNGS: No active pulmonary disease. PLEURA: No significant pleural effusion identified, no pneumothorax apparent. CARDIOVASCULAR: Normal. OSSEOUS STRUCTURES: No significant abnormalities. VISUALIZED UPPER ABDOMEN: Normal. OTHER FINDINGS: None. IMPRESSION: No active disease.
--- NOTE | 2017-02-22 15:25 | CP.PCM.PN ---
<Maik Mccord - Last Filed: 02/22/17 17:18> Subjective - Date & Time of Evaluation Date of Evaluation: 02/22/17 Time of Evaluation: 10:00 - Subjective Subjective: Medicine Progress note for Dr. Davis Patient seen and examined at bedside. Patient complaining of withdrawal symptoms from his heroin and benzodiazepine use disorders. Patient does state that he does not feel pruritis anymore ever since permethrin was started. Patient denies fever, chills, chest pain, dyspnea, abdominal pain, dysuria. Objective - Vital Signs/Intake and Output Vital Signs (last 24 hours): Temp Pulse Resp BP Pulse Ox 97.6 F 70 20 126/70 99 02/22/17 10:04 02/22/17 10:04 02/22/17 10:04 02/22/17 10:04 02/20/17 13:25 - Medications Medications: Current Medications Albuterol (Ventolin Hfa 90 Mcg/Actuation (8 G)) 1 puff INH RQ4 PRN PRN Reason: SOB Last Admin: 02/21/17 17:16 Dose: 1 puff Budesonide (Pulmicort Respules) 0.5 mg INH RQ12 [facility] Escitalopram Oxalate (Lexapro) 10 mg PO DAILY [facility] Last Admin: 02/22/17 09:59 Dose: 10 mg Gabapentin (Neurontin) 300 mg PO TID [facility] Last Admin: 02/22/17 13:11 Dose: 300 mg Hydrocortisone (Cortizone 1% Cream) 1 gm TOP BID [facility] Last Admin: 02/22/17 09:16 Dose: 1 appl Hydroxyzine HCl (Atarax) 50 mg PO Q6H PRN PRN Reason: Anxiety Last Admin: 02/20/17 17:06 Dose: 50 mg Ibuprofen (Motrin Tab) 600 mg PO Q6H PRN PRN Reason: Pain, moderate (4-7) Methadone HCl (Methadone) 10 mg PO Q24H [facility] PRN Reason: Taper Stop: 02/25/17 09:59 Last Admin: 02/22/17 09:15 Dose: 10 mg Montelukast Sodium (Singulair) 10 mg PO HS [facility] Last Admin: 02/21/17 21:45 Dose: 10 mg Permethrin (Permethrin 5% Cream) 1 gm TOP DAILY [facility] Last Admin: 02/22/17 09:15 Dose: 1 applic Prednisone (Prednisone Tab) 10 mg PO DAILY [facility] Last Admin: 02/22/17 15:09 Dose: 10 mg Fluticasone/Salmeterol (Advair Diskus 250/50) 1 puff INH RQ12 [facility] Trazodone HCl (Desyrel) 100 mg PO HS PRN PRN Reason: Insomnia Last Admin: 02/21/17 21:46 Dose: 100 mg - Labs Labs: 02/20/17 11:29 02/20/17 11:29 - Constitutional Appears: No Acute Distress - Head Exam Head Exam: ATRAUMATIC, NORMOCEPHALIC - Eye Exam Eye Exam: EOMI, Normal appearance - ENT Exam ENT Exam: Mucous Membranes Moist - Neck Exam Neck Exam: Full ROM - Respiratory Exam Respiratory Exam: Rhonchi, NORMAL BREATHING PATTERN. absent: Rales, Wheezes - Cardiovascular Exam Cardiovascular Exam: REGULAR RHYTHM, +S1, +S2 - GI/Abdominal Exam GI & Abdominal Exam: Soft, Normal Bowel Sounds. absent: Tenderness - Extremities Exam Extremities Exam: absent: Pedal Edema Additional comments: Excoriations along the 4 extremities. - Neurological Exam Neurological Exam: Alert, Awake, Oriented x3 - Psychiatric Exam Psychiatric exam: Normal Affect, Normal Mood - Skin Skin Exam: Dry, Warm Assessment and Plan - Assessment and Plan (Free Text) Plan: Excoriations of shoulders, lower back, chest, arms, and legs History of being homeless, possible scabies Permethrin Cream to affected areas daily hydrocortisone cream to affected areas daily follow up Echo Pedal Edema, with erythema Foot Xray negative COPD/Emphysema Rhonchi on physical exam Patient already on Singulair and Albuterol Home med Prednisone 10 mg PO daily restarted Patient's other respiratory medications not on formulary so the following was started in their place * Advair 250/50 Q12H [facility] * Budesonide 0.5 Q12H [facility] CXR ordered--no active disease Depression continue with current medical management per primary team Case DW Dr. Ryan Mccord PGY-1 <Madeleine Davis V - Last Filed: 02/22/17 20:44> Objective - Vital Signs/Intake and Output Vital Signs (last 24 hours): Temp Pulse Resp BP Pulse Ox 97.6 F 70 20 126/70 99 02/22/17 10:04 02/22/17 10:04 10/09/17 10:04 02/22/17 10:04 02/20/17 13:25 - Medications Medications: Current Medications Albuterol (Ventolin Hfa 90 Mcg/Actuation (8 G)) 1 puff INH RQ4 PRN PRN Reason: SOB Last Admin: 02/21/17 17:16 Dose: 1 puff Budesonide (Pulmicort Respules) 0.5 mg INH RQ12 [facility] Escitalopram Oxalate (Lexapro) 10 mg PO DAILY [facility] Last Admin: 02/22/17 09:59 Dose: 10 mg Gabapentin (Neurontin) 300 mg PO TID [facility] Last Admin: 02/22/17 17:50 Dose: 300 mg Hydrocortisone (Cortizone 1% Cream) 1 gm TOP BID [facility] Last Admin: 02/22/17 17:50 Dose: 1 appl Hydroxyzine HCl (Atarax) 50 mg PO Q6H PRN PRN Reason: Anxiety Last Admin: 02/20/17 17:06 Dose: 50 mg Ibuprofen (Motrin Tab) 600 mg PO Q6H PRN PRN Reason: Pain, moderate (4-7) Methadone HCl (Methadone) 10 mg PO Q24H [facility] PRN Reason: Taper Stop: 02/25/17 09:59 Last Admin: 02/22/17 09:15 Dose: 10 mg Montelukast Sodium (Singulair) 10 mg PO HS [facility] Last Admin: 02/21/17 21:45 Dose: 10 mg Permethrin (Permethrin 5% Cream) 1 gm TOP DAILY [facility] Last Admin: 02/22/17 09:15 Dose: 1 applic Prednisone (Prednisone Tab) 10 mg PO DAILY [facility] Last Admin: 02/22/17 15:09 Dose: 10 mg Fluticasone/Salmeterol (Advair Diskus 250/50) 1 puff INH RQ12 [facility] Trazodone HCl (Desyrel) 100 mg PO HS PRN PRN Reason: Insomnia Last Admin: 02/21/17 21:46 Dose: 100 mg - Labs Labs: 02/20/17 11:29 02/20/17 11:29 Attending/Attestation - Attestation I have personally seen and examined this patient.: Yes I have fully participated in the care of the patient.: Yes I have reviewed all pertinent clinical information, including history, physical exam and plan: Yes Notes (Text): Patient seen, examined, and case discussed with day-time resident. Patient reports history of drug use, reports primarily sniffs but I do suspect IV use given locations of his scars/excoriations. Patient reports pruritus has subsided. Patient reports he is homeless but denies any small bugs. patient is also bald and no apparent bugs noted during physcial exam. Patient completed echocardiogram but low suspicion for endocarditis. patient is not spiking fevers and clinically does not appear in endocarditis. Patient reports history of COPD-->medications resumed for COPD management. Ordered for venous doppler r/o dvt Ordered for repeat UA in light of hematuria and renal us r/o mass Assessment/Plan 1) Excoriations of shoulders, lower back, chest, arms, and legs * History of being homeless, possible scabies * Permethrin Cream to affected areas daily * hydrocortisone cream to affected areas daily * Improved 2) History of Drug Use * follow up Echo-->low suspicion for Endocarditis. patient is not spiking fevers , did not present with white count 3) Pedal Edema, with erythema * Foot xray: no evidence of acute fracture of dislocation * Will order venous doppler r/o DVT * improved edema on exam 4) hx of COPD/Emphysema * Chest xray (02/22/17): no active disease * Albuterol PRN * Advair 250/50 1 inhaled Q 12hours * Singulair 10mg PO daily * Pulmicort 0.5 IN Q 12 * Prednisone 10mg PO daily 5) Depression Opiod Abuse Benzo Abuse * management per psychiatry 6) Abnormal UA, Hematuria * Repeat UA * Renal US r/o mass
--- NOTE | 2017-02-22 18:56 | PCM.PYCHPN ---
Psychiatric Progress Note - Psychiatric Progress Note Patient seen today, length of contact: 15 minutes Patient Chief Complaint: I'm feeling better. Problems Identified/Issues Discussed: Patient seen. Chart reviewed. Case discussed with the staff. Issues related to illness and treatment were discussed with the patient. Reported compliant with treatment with no adverse affects. Tolerating treatment very well. Reported feeling little better with the treatment. Better mood and sleep. At the time of evaluation, patient was awake alert oriented 3, had no delusions , no auditory or visual hallucinations, no suicidal ideations or homicidal ideations. Medical Problems: COPD Emphysema Diagnostic Results: Reviewed DSM 5 Symptoms Update: Improving with treatment Medication Change: No Medical Record Reviewed: Yes Mental Status Examination - Cognitive Function Orientation: Person, Place, Situation, Time Memory: Intact Attention: WNL Concentration: WNL Association: WNL Fund of Knowledge: [facility] Decription of patient's judgement and insights: Fair - Mood Mood: Depressed - Affect Affect: Depressed - Speech Speech: Appropriate - Formal Thought Process Formal Thought Process: No Impairment Psychotic Thoughts and Behaviors: None - Suicidal Ideation Suicidal Ideation: No - Homicidal Ideation Homicidal Ideation: No Goal/Treatment Plan - Goal/Treatment Plan Need for Continued Stay: Remain at risks for inpatient hospitalization, Discharge may exacerbated symptoms, Severe functional impairment Progress Toward Problem(s) and Goals/Treatment Plan: Patient education Supportive therapy Continue treatment as before. Estimated Date of D/C: 02/26/17 - Smoking Cessation Smoking Cessation Initiated: No Reason for not providing: Patient refused
[2017-02-22] MEDS: Fluticasone-Salmeterol 250-50mcg Diskus INH SCH (20:30)
[2017-02-22] MEDS: Budesonide 0.5 mg/2 ml Inhal Susp UD INH SCH (22:16)
[2017-02-23] MEDS: Fluticasone-Salmeterol 250-50mcg Diskus INH SCH ×2 (07:50→20:25)
[2017-02-23] MEDS: Albuterol HFA 90 mcg/actuation (8 g) INH PRN (07:51)
[2017-02-23 08:28] LABS: BASO % 0.6 % (0.0-2.0); EOS % 0.3 % (0.0-4.0); HEMATOCRIT 38.2 % (35.0-51.0); LYMPH # 1.3 K/uL (1.0-4.3); LYMPH % 17.7 % (20.0-40.0); MEAN CELL VOLUME 85.3 fL (80.0-94.0); MEAN CORPUSCULAR HEMOGLOBIN 29.2 pg (27.0-31.0); MEAN CORPUSCULAR HGB CONC 34.2 g/dL (33.0-37.0); MEAN PLATELET VOLUME 7.8 fL (7.2-11.7); MONO # 0.5 K/uL (0.0-0.8); MONO % 7.3 % (0.0-10.0); WHITE BLOOD COUNT 7.2 K/uL (4.8-10.8)
[2017-02-23 08:49] LABS: CHLORIDE 104 mmol/L (98-107)
[2017-02-23 08:50] LABS: POTASSIUM 4.6 mmol/L (3.6-5.2); SODIUM 138 mmol/L (132-148)
[2017-02-23 08:52] LABS: ALKALINE PHOSPHATASE 69 U/L (38-126); AST/SGOT 22 U/L (17-59); BILIRUBIN,TOTAL 0.6 mg/dL (0.2-1.3); CARBON DIOXIDE 19 mmol/L (22-30); GFR AFRICAN-AMERICAN > 60; TOTAL PROTEIN 7.9 g/dL (6.3-8.3)
[2017-02-23 08:53] LABS: ALT/SGPT 20 U/L (21-72); BLOOD UREA NITROGEN 18 mg/dL (9-20); CALCIUM 9.3 mg/dl (8.6-10.4); GLUCOSE,RANDOM 79 mg/dL (75-110)
--- NOTE | 2017-02-23 09:03 | US ---
PROCEDURE: Ultrasound of the Kidneys HISTORY: hematuria, smoker COMPARISON: Chest without contrast 12/10/2014. TECHNIQUE: Sonogram of the kidneys. FINDINGS: RIGHT KIDNEY: Measures: 9.0 x 4.5 x 4.4 cm. Normal in size, an ; tiny echogenicities consistent with non obstructing calculi -noted on prior CT chest. No stone, solid mass lesion or hydronephrosis visualized. Multiple right renal cysts noted: At least 4 noted the largest on the right measures 2.6 x 2.5 x 2.3 cm LEFT KIDNEY: Measures: 9.9 x 4.1 x 3.8 cm. Normal in size, and contour. Tiny echogenicities consistent with nonobstructing calculi -noted on prior CT chest No stone, solid mass lesion or hydronephrosis visualized. Multiple left renal cysts noted: Least 3 noted -largest in the upper pole measuring 2.3 x 2.1 x 1.7 cm OTHER FINDINGS: None. IMPRESSION: No hydronephrosis. Tiny punctate nonobstructing calculi suspect those on the left are more conspicuous. These have been noted on the prior 2014 CT chest exam Multiple bilateral benign-appearing renal cysts
[2017-02-23] MEDS: Hydrocortisone 1% Cream (30 GM) TOP SCH ×2 (09:11→17:17)
[2017-02-23] MEDS: Permethrin 5% Cream(60 gm) TOP SCH (09:13)
[2017-02-23] MEDS: Budesonide 0.5 mg/2 ml Inhal Susp UD INH SCH ×2 (09:39→20:25)
[2017-02-23 10:17] LABS: RBC URINE 2 /hpf (0-3); URINE BILIRUBIN NEGATIVE (NEGATIVE); URINE BLOOD NEGATIVE (NEGATIVE); URINE COLOR Yellow (YELLOW); URINE GLUCOSE (UA) NORMAL (Normal); URINE KETONE 2+ mg/dL (NEGATIVE); URINE LEUKOCYTE ESTERASE NEG Leu/uL (Negative); URINE PROTEIN NEGATIVE (NEGATIVE); URINE UROBILINOGEN NORMAL mg/dL (0.2-1.0); WBC URINE 1 /hpf (0-5)
--- NOTE | 2017-02-23 11:58 | CARD ---
APPROVED REPORT EXAM: Two-dimensional and M-mode echocardiogram with Doppler and color Doppler. Other Information Quality : GoodRhythm : NSR INDICATION OD; DRUG ABUSE 2D DIMENSIONS IVSd0.7 (0.7-1.1cm)LVDd5.2 (3.9-5.9cm) PWd0.7 (0.7-1.1cm)LVDs3.6 (2.5-4.0cm) FS (%) 31.1 %LVEF (%)58.5 (>50%) M-Mode DIMENSIONS Left Atrium (MM)1.88 (2.5-4.0cm)Aortic Root2.82 (2.2-3.7cm) Aortic Cusp Exc.2.07 (1.5-2.0cm) Mitral Valve MV E Csbouuzl06.8cm/sMV A Gjdqnbpa20.2cm/sE/A ratio2.2 TDI E/Lateral E'0.0E/Medial E'0.0 Tricuspid Valve TR Peak Jdqxvncg230dq/sTR Peak Gr.[id number] LEFT VENTRICLE The left ventricle is normal size. There is normal left ventricular wall thickness. Left ventricle systolic function is normal. The Ejection Fraction is 55-60%. There is normal LV segmental wall motion. The left ventricular diastolic function is normal. No left ventricle thrombus noted on this study. RIGHT VENTRICLE The right ventricle is normal size. The right ventricular systolic function is normal. ATRIA The left atrium size is normal. The right atrium size is normal. AORTIC VALVE The aortic valve is mildly thickened. The aortic valve is probably trileaflet. No aortic regurgitation is present. There is no aortic valvular stenosis. There is no aortic valvular vegetation. MITRAL VALVE Mitral annular calcification is mild. There is no evidence of mitral valve prolapse. There is no mitral valve stenosis. There is no mitral valve regurgitation noted. TRICUSPID VALVE The tricuspid valve is normal in structure. There is trace tricuspid regurgitation. Right ventricular systolic pressure is estimated at 30-40 mmHg. There is no pulmonary hypertension. There is no tricuspid valve prolapse or vegetation. There is no tricuspid valve stenosis. PULMONIC VALVE The pulmonic valve is not well visualized. There is no pulmonic valvular regurgitation. GREAT VESSELS The aortic root is normal in size. The IVC is normal in size and collapses >50% with inspiration. PERICARDIAL EFFUSION There is no pericardial effusion. There is no pleural effusion. <Conclusion> The left ventricle is normal size. Left ventricle systolic function is normal. The Ejection Fraction is 55-60%. The left ventricular diastolic function is normal. The right ventricle is normal size. The right ventricular systolic function is normal. The left atrium size is normal. The right atrium size is normal. There is trace tricuspid regurgitation.
--- NOTE | 2017-02-23 14:17 | CP.PCM.PN ---
<Maik Mccord - Last Filed: 02/23/17 19:55> Subjective - Date & Time of Evaluation Date of Evaluation: 02/23/17 Time of Evaluation: 07:10 - Subjective Subjective: Medicine Progress note for Dr. Davis Patient seen and examined at bedside. Patient stated that he felt better this morning. Patient states that his withdrawal symptoms have lessened in severity. Patient does state that he does not feel pruritis anymore ever since permethrin was started. Patient denies fever, chills, chest pain, dyspnea, abdominal pain, dysuria. Objective - Vital Signs/Intake and Output Vital Signs (last 24 hours): Temp Pulse Resp BP Pulse Ox 97.6 F 70 20 126/70 99 02/22/17 10:04 02/23/17 09:40 02/22/17 10:04 02/22/17 10:04 02/20/17 13:25 - Medications Medications: Current Medications Albuterol (Ventolin Hfa 90 Mcg/Actuation (8 G)) 1 puff INH RQ4 PRN PRN Reason: SOB Last Admin: 02/23/17 07:51 Dose: 1 puff Budesonide (Pulmicort Respules) 0.5 mg INH RQ12 [facility] Last Admin: 02/23/17 09:39 Dose: 0.5 mg Escitalopram Oxalate (Lexapro) 10 mg PO DAILY [facility] Last Admin: 02/23/17 09:12 Dose: 10 mg Gabapentin (Neurontin) 300 mg PO TID [facility] Last Admin: 02/23/17 13:09 Dose: 300 mg Hydrocortisone (Cortizone 1% Cream) 1 gm TOP BID [facility] Last Admin: 02/23/17 09:11 Dose: 1 appl Hydroxyzine HCl (Atarax) 50 mg PO Q6H PRN PRN Reason: Anxiety Last Admin: 02/20/17 17:06 Dose: 50 mg Ibuprofen (Motrin Tab) 600 mg PO Q6H PRN PRN Reason: Pain, moderate (4-7) Methadone HCl (Methadone) 5 mg PO Q24H [facility] PRN Reason: Taper Stop: 02/25/17 09:59 Last Admin: 02/23/17 09:12 Dose: 5 mg Montelukast Sodium (Singulair) 10 mg PO HS [facility] Last Admin: 02/22/17 22:25 Dose: 10 mg Permethrin (Permethrin 5% Cream) 1 gm TOP DAILY [facility] Last Admin: 02/23/17 09:13 Dose: 1 applic Prednisone (Prednisone Tab) 10 mg PO DAILY [facility] Last Admin: 02/23/17 09:12 Dose: 10 mg Fluticasone/Salmeterol (Advair Diskus 250/50) 1 puff INH RQ12 [facility] Last Admin: 02/23/17 07:50 Dose: 1 puff Trazodone HCl (Desyrel) 100 mg PO HS PRN PRN Reason: Insomnia Last Admin: 02/22/17 22:25 Dose: 100 mg - Labs Labs: 02/23/17 08:17 02/23/17 08:17 - Constitutional Appears: No Acute Distress - Head Exam Head Exam: ATRAUMATIC, NORMOCEPHALIC - Eye Exam Eye Exam: EOMI, Normal appearance - ENT Exam ENT Exam: Mucous Membranes Moist - Respiratory Exam Respiratory Exam: Rhonchi (left>right), NORMAL BREATHING PATTERN. absent: Rales , Wheezes, Respiratory Distress - Cardiovascular Exam Cardiovascular Exam: REGULAR RHYTHM, +S1, +S2 - GI/Abdominal Exam GI & Abdominal Exam: Soft, Normal Bowel Sounds. absent: Tenderness - Extremities Exam Extremities Exam: absent: Calf Tenderness, Pedal Edema Additional comments: Excoriations along the 4 extremities. - Back Exam Additional comments: Excoriations along the back that differ in variation - Neurological Exam Neurological Exam: Alert, Awake, Oriented x3 - Psychiatric Exam Psychiatric exam: Normal Affect, Normal Mood - Skin Skin Exam: Dry, Warm Assessment and Plan - Assessment and Plan (Free Text) Plan: Excoriations of shoulders, lower back, chest, arms, and legs History of being homeless, possible scabies Permethrin Cream to affected areas daily hydrocortisone cream to affected areas daily Echocardiogram shows an LVEF 55-60% without systolic or diastolic dysfunction. No vegetations per report. Recommend that the patient follow up with the [facility] for evaluation of his skin lesions. He will likely need to be seen by a deep tissue massage therapist. Pedal Edema, with erythema Foot Xray negative Resolving leg edema Abnormality of Long Saphenous Vein bilaterally Aspirin 325 mg PO daily for 3-6 months. Will need to be re-evaluated in the future as an outpatient with repeat ultrasound. COPD/Emphysema Rhonchi on physical exam Patient already on Singulair and Albuterol Home med Prednisone 10 mg PO daily restarted Patient's other respiratory medications not on formulary so the following was started in their place * Advair 250/50 Q12H [facility] * Budesonide 0.5 Q12H [facility] CXR ordered--no active disease Patient stated he has an appointment with his steeler Dr. Escalante in April for follow up. Depression continue with current medical management per primary team Medicine team will sign off on this patient. Please re-consult if necessary. Case DW Dr. Ryan Mccord PGY-1 <Madeleine Davis V - Last Filed: 02/24/17 01:49> Objective - Vital Signs/Intake and Output Vital Signs (last 24 hours): Temp Pulse Resp BP Pulse Ox 97.6 F 54 L 20 100/56 L 99 02/22/17 10:04 02/23/17 16:05 02/22/17 10:04 02/23/17 16:05 02/20/17 13:25 - Medications Medications: Current Medications Albuterol (Ventolin Hfa 90 Mcg/Actuation (8 G)) 1 puff INH RQ4 PRN PRN Reason: SOB Last Admin: 02/23/17 07:51 Dose: 1 puff Aspirin (Aspirin) 325 mg PO DAILY [facility] Budesonide (Pulmicort Respules) 0.5 mg INH RQ12 [facility] Last Admin: 02/23/17 20:25 Dose: 0.5 mg Escitalopram Oxalate (Lexapro) 10 mg PO DAILY [facility] Last Admin: 02/23/17 09:12 Dose: 10 mg Gabapentin (Neurontin) 300 mg PO TID [facility] Last Admin: 02/23/17 17:17 Dose: 300 mg Hydrocortisone (Cortizone 1% Cream) 1 gm TOP BID [facility] Last Admin: 02/23/17 17:17 Dose: 1 appl Hydroxyzine HCl (Atarax) 50 mg PO Q6H PRN PRN Reason: Anxiety Last Admin: 02/20/17 17:06 Dose: 50 mg Ibuprofen (Motrin Tab) 600 mg PO Q6H PRN PRN Reason: Pain, moderate (4-7) Methadone HCl (Methadone) 5 mg PO Q24H [facility] PRN Reason: Taper Stop: 02/25/17 09:59 Last Admin: 02/23/17 09:12 Dose: 5 mg Montelukast Sodium (Singulair) 10 mg PO HS [facility] Last Admin: 02/23/17 21:19 Dose: 10 mg Permethrin (Permethrin 5% Cream) 1 gm TOP DAILY [facility] Last Admin: 02/23/17 09:13 Dose: 1 applic Prednisone (Prednisone Tab) 10 mg PO DAILY [facility] Last Admin: 02/23/17 09:12 Dose: 10 mg Fluticasone/Salmeterol (Advair Diskus 250/50) 1 puff INH RQ12 [facility] Last Admin: 02/23/17 20:25 Dose: 1 puff Trazodone HCl (Desyrel) 100 mg PO HS PRN PRN Reason: Insomnia Last Admin: 02/23/17 21:19 Dose: 100 mg - Labs Labs: 02/23/17 08:17 02/23/17 08:17 Attending/Attestation - Attestation I have personally seen and examined this patient.: Yes I have fully participated in the care of the patient.: Yes I have reviewed all pertinent clinical information, including history, physical exam and plan: Yes Notes (Text): This is late computer entry for 02/23/17. Patient seen, examined, and case discussed with day-time resident. Patient seen this morning. patient irritated because he has to complete so many exams but does not understand ibarra. I explained to the patient we are checking his urine and kidneys to make sure he has no kidney mass given his smoking hx which he does not. Patient restarted on his medications for COPD; patient reports he sees regularly Dr. Escalante, his [facility] and has a follow-up appointment with him next month. Assessment/Plan 1) Excoriations of shoulders, lower back, chest, arms, and legs * History of being homeless, possible scabies * Permethrin Cream to affected areas daily * hydrocortisone cream to affected areas daily * Improved * Patient recommended to follow-up in the clinic to monitor skin lesion; patient advised to follow-up for skin biopsy and/or monitor by deep tissue massage therapist. Patient reports he has not seen any and reports he has insurance. 2) History of Drug Use * follow up Echo-->low suspicion for Endocarditis. patient is not spiking fevers , did not present with white count * Echocardiogram: left ventricle is normal size, left ventricle systolic function is normal, EF: 55-60%, left ventricular diasotlic function is normal. right ventricle is normal size. reight ventricular systolic function is normal. Left atrium is normal. right atrium is normal. Trace tricuspid regurgitation * No elevated white count, no fever 3) Pedal Edema, with erythema * Foot xray: no evidence of acute fracture of dislocation * Will order venous doppler r/o DVT: No evidence of DVT of right lower extremity and left lower extremity. 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 Chronic thrombosis of the left proximal calf to ankle great saphenous vein with mild reduction of the venous return * Patient started on full dose Aspirin * Patient recommended to follow-up with with repeat doppler in 7-10 days to monitor Superficial vein thrombosis. Given patient's drug use and patient does not admit to Iv drug use but strong suspicion, would not recommend subq Lovenox at this time. Patient recommended to follow-up in the clinic upon hospital discharge. * Patient is a smoker and male as risk factors 4) hx of COPD/Emphysema * Chest xray (02/22/17): no active disease * Albuterol PRN * Advair 250/50 1 inhaled Q 12hours * Singulair 10mg PO daily * Pulmicort 0.5 IN Q 12 * Prednisone 10mg PO daily * Patient sees Dr. Escalante as his outpatient, [facility]. 5) Depression Opiod Abuse Benzo Abuse * management per psychiatry 6) Abnormal UA, Hematuria * Renal US r/o mass no hydronephrosis. Tiny punctate nonobstructing calculi suspect those on the left are more conspicuous. Noted on pror 2014 CT chest exam , multiple bilateral benign appearing renal cysts Patient is medically stable from medicine point of view. Patient is recommended to follow-up/establish care in the [facility] in regards to monitoring renal cysts, recommend venous duplex in 7-10 days to monitor superificial venous thrombophelbitis to prevent conversion or extension into greater saphenous vein; patient is strongly recommended to stop smoking which is a risk factor for clot formations, and recommended to follow- up in the clinic to skin biopsy of skin lesion or follow-up with deep tissue massage therapist given lesion primarily on the back. Patient's smoking unforunately increases his risk for malignancy and/or DVT formation. Patient reports he really wants to do [employer] and get clean from drugs. Please reconsult PRN. Thank you.
--- NOTE | 2017-02-23 14:24 | VASCLAB ---
PROCEDURE: Lower Extremity Venous Duplex Exam. HISTORY: Leg swelling PRIORS: None. TECHNIQUE: Bilateral common femoral, femoral, popliteal and posterior tibial, peroneal and great saphenous veins were evaluated. Flow was assessed with color Doppler, compressibility, assessment of phasic flow and augmentation response. Report prepared by BECCA Gonzalez, RVT FINDINGS: RIGHT: 1. Common Femoral Vein: 1.1. Compressibility - Fully compressible: Thrombus - None : Flow - Phasic: Augmentation -Normal: Reflux - None. 2. Femoral Vein: 2.1. Compressibility - Fully compressible: Thrombus - None : Flow - Phasic: Augmentation -Normal: Reflux - None. 3. Popliteal Vein: 3.1. Compressibility - Fully compressible: Thrombus - None : Flow - Phasic: Augmentation -Normal: Reflux - None. 4. Posterior Tibial Vein: 4.1. Compressibility - Fully compressible: Thrombus - None: Flow - Phasic: Augmentation -Normal: Reflux - None. 5. Peroneal Vein: 5.1. Compressibility - Fully compressible: Thrombus - None: Flow - Phasic: Augmentation -Normal: Reflux - None. 6. Great Saphenous Vein: 6.1. Compressibility - Partial: Thrombus - Chronic: Flow - Reduced : Augmentation - None: Reflux - None. LEFT: 1. Common Femoral Vein: 1.1. Compressibility - Fully compressible: Thrombus - None: Flow - Phasic: Augmentation -Normal: Reflux - None. 2. Femoral Vein: 2.1. Compressibility - Fully compressible: Thrombus - None: Flow - Phasic: Augmentation -Normal: Reflux - None. 3. Popliteal Vein: 3.1. Compressibility - Fully compressible: Thrombus - None : Flow - Phasic: Augmentation -Normal: Reflux - None. 4. Posterior Tibial Vein: 4.1. Compressibility - Fully compressible: Thrombus - None: Flow - Phasic: Augmentation -Normal: Reflux - None. 5. Peroneal Vein: 5.1. Compressibility - Fully compressible: Thrombus - None: Flow - Phasic: Augmentation -Normal: Reflux - None. 6. Great Saphenous Vein: 6.1. Compressibility - Partial: Thrombus - Chronic: Flow - Reduced : Augmentation - None: Reflux - None. OTHER FINDINGS: KAI Morales notified about the findings. IMPRESSION: Right: No evidence of deep vein thrombosis of the right lower extremity. Normal valve function noted of the right side. 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 Left: No evidence of deep vein thrombosis of the left lower extremity. Normal valve function noted of the left side. Chronic thrombosis of the left proximal calf to ankle level greater saphenous vein with mild reduction of the venous return.
--- NOTE | 2017-02-23 16:41 | PCM.PYCHPN ---
Psychiatric Progress Note - Psychiatric Progress Note Patient seen today, length of contact: 15 minutes Patient Chief Complaint: I'm feeling better. Problems Identified/Issues Discussed: Patient seen. Chart reviewed. Case discussed with the staff. Issues related to illness and treatment were discussed with the patient. Reported compliant with treatment with no adverse affects. Tolerating treatment very well. Reported feeling little better with the treatment. Better mood and sleep. At the time of evaluation, patient was awake alert oriented 3, had no delusions , no auditory or visual hallucinations, no suicidal ideations or homicidal ideations. Medical Problems: COPD Emphysema Diagnostic Results: Reviewed DSM 5 Symptoms Update: Improving with treatment Medication Change: No Medical Record Reviewed: Yes Mental Status Examination - Cognitive Function Orientation: Person, Place, Situation, Time Memory: Intact Attention: WNL Concentration: WNL Association: WNL Fund of Knowledge: [facility] Decription of patient's judgement and insights: Fair - Mood Mood: Depressed - Affect Affect: Depressed - Speech Speech: Appropriate - Formal Thought Process Formal Thought Process: No Impairment Psychotic Thoughts and Behaviors: None - Suicidal Ideation Suicidal Ideation: No - Homicidal Ideation Homicidal Ideation: No Goal/Treatment Plan - Goal/Treatment Plan Need for Continued Stay: Remain at risks for inpatient hospitalization, Discharge may exacerbated symptoms, Severe functional impairment Progress Toward Problem(s) and Goals/Treatment Plan: Patient education Supportive therapy Continue treatment as before. Estimated Date of D/C: 02/26/17 - Smoking Cessation Smoking Cessation Initiated: No
[2017-02-24] MEDS: Fluticasone-Salmeterol 250-50mcg Diskus INH SCH ×2 (08:10→21:47)
[2017-02-24] MEDS: Hydrocortisone 1% Cream (30 GM) TOP SCH ×2 (10:39→17:46)
[2017-02-24] MEDS: Permethrin 5% Cream(60 gm) TOP SCH (11:27)
[2017-02-24] MEDS: Budesonide 0.5 mg/2 ml Inhal Susp UD INH SCH ×2 (14:12→22:22)
--- NOTE | 2017-02-24 15:26 | PCM.PYCHPN ---
Psychiatric Progress Note - Psychiatric Progress Note Patient seen today, length of contact: 15 minutes Patient Chief Complaint: I still feel depressed. I wish God take me. Problems Identified/Issues Discussed: Patient seen. Chart reviewed. Case discussed with the staff. Issues related to illness and treatment were discussed with the patient. Reported compliant with treatment with no adverse affects. Tolerating treatment very well. Reported feeling depressed with some passive suicidal ideations. Reported he wished that God take him as he does not want to live. Patient reported he does not want to do anything but wants that God should take him back. At the time of evaluation, patient was awake alert oriented 3, had no delusions , no auditory or visual hallucinations, no suicidal ideations or homicidal ideations. Medical Problems: COPD Emphysema Diagnostic Results: Reviewed DSM 5 Symptoms Update: Some improvement with treatment Medication Change: Yes (Lexapro dose was increased to 20 mg, started lithium 300 mg twice a day) Medical Record Reviewed: Yes Consults ordered or reviewed: Reviewed Mental Status Examination - Cognitive Function Orientation: Person, Place, Situation, Time Memory: Intact Attention: WNL Concentration: WNL Association: [facility] Fund of Knowledge: [facility] Decription of patient's judgement and insights: Fair - Mood Mood: Depressed - Affect Affect: Depressed - Speech Speech: Appropriate - Formal Thought Process Formal Thought Process: No Impairment Psychotic Thoughts and Behaviors: None - Suicidal Ideation Suicidal Ideation: Yes Plan: Passive with no plan - Homicidal Ideation Homicidal Ideation: No Goal/Treatment Plan - Goal/Treatment Plan Need for Continued Stay: Remain at risks for inpatient hospitalization, Discharge may exacerbated symptoms, Severe functional impairment Progress Toward Problem(s) and Goals/Treatment Plan: Patient education Supportive therapy Increase the dose of Lexapro to 20 mg daily Start lithium 300 mg twice a day for suicidal ideations and mood stabilization. Continue rest of the treatment as before. Wants to go to [facility] for follow-up care after discharge from the hospital. Estimated Date of D/C: 02/26/17 - Smoking Cessation Smoking Cessation Initiated: No
[2017-02-25] MEDS: Albuterol HFA 90 mcg/actuation (8 g) INH PRN ×3 (02:00→21:11)
[2017-02-25] MEDS: Fluticasone-Salmeterol 250-50mcg Diskus INH SCH ×2 (08:25→20:00)
[2017-02-25] MEDS: Budesonide 0.5 mg/2 ml Inhal Susp UD INH SCH ×2 (09:14→21:10)
[2017-02-25] MEDS: Permethrin 5% Cream(60 gm) TOP SCH (09:58)
[2017-02-25] MEDS: Hydrocortisone 1% Cream (30 GM) TOP SCH ×2 (09:58→17:24)
--- NOTE | 2017-02-25 17:19 | PCM.PYCHPN ---
Psychiatric Progress Note - Psychiatric Progress Note Patient seen today, length of contact: 15 minutes Patient Chief Complaint: I'm feeling little better. Problems Identified/Issues Discussed: Patient seen. Chart reviewed. Case discussed with the staff. Issues related to illness and treatment were discussed with the patient. Reported compliant with treatment with no adverse affects. Tolerating treatment very well. Reported feeling little better after start of lithium. At the time of evaluation, patient was awake alert oriented 3, had no delusions , no auditory or visual hallucinations, no suicidal ideations or homicidal ideations. Medical Problems: COPD Emphysema Diagnostic Results: Reviewed DSM 5 Symptoms Update: Improving with treatment Medication Change: No Medical Record Reviewed: Yes Consults ordered or reviewed: Reviewed Mental Status Examination - Cognitive Function Orientation: Person, Place, Situation, Time Memory: Intact Attention: WNL Concentration: WNL Association: [facility] Fund of Knowledge: [facility] Decription of patient's judgement and insights: Fair - Mood Mood: Depressed (Much less than before.) - Affect Affect: Depressed - Speech Speech: Appropriate - Formal Thought Process Formal Thought Process: No Impairment Psychotic Thoughts and Behaviors: None - Suicidal Ideation Suicidal Ideation: No - Homicidal Ideation Homicidal Ideation: No Goal/Treatment Plan - Goal/Treatment Plan Need for Continued Stay: Remain at risks for inpatient hospitalization, Discharge may exacerbated symptoms, Severe functional impairment Progress Toward Problem(s) and Goals/Treatment Plan: Patient education Supportive therapy Continue treatment as before Wants to go to [facility] for follow-up care after discharge from the hospital. Estimated Date of D/C: 02/26/17 - Smoking Cessation Smoking Cessation Initiated: No
[2017-02-26] MEDS: Fluticasone-Salmeterol 250-50mcg Diskus INH SCH ×2 (08:29→20:14)
[2017-02-26] MEDS: Budesonide 0.5 mg/2 ml Inhal Susp UD INH SCH ×2 (08:54→21:12)
[2017-02-26] MEDS: Hydrocortisone 1% Cream (30 GM) TOP SCH ×2 (09:32→17:04)
[2017-02-26] MEDS: Permethrin 5% Cream(60 gm) TOP SCH (09:32)
[2017-02-26] MEDS: Albuterol HFA 90 mcg/actuation (8 g) INH PRN ×2 (09:34→21:14)
--- NOTE | 2017-02-26 13:00 | PCM.PYCHPN ---
Psychiatric Progress Note - Psychiatric Progress Note Patient seen today, length of contact: 15 minutes Patient Chief Complaint: I'm feeling little better. I'm also anxious. Problems Identified/Issues Discussed: Patient seen. Chart reviewed. Case discussed with the staff. Issues related to illness and treatment were discussed with the patient. Reported compliant with treatment with no adverse affects. Tolerating treatment very well. Reported feeling little better after start of lithium.also feels little anxious. At the time of evaluation, patient was awake alert oriented 3, had no delusions , no auditory or visual hallucinations, no suicidal ideations or homicidal ideations. Medical Problems: COPD Emphysema Diagnostic Results: Reviewed DSM 5 Symptoms Update: some improvement with treatment Medication Change: No Medical Record Reviewed: Yes Consults ordered or reviewed: Reviewed Mental Status Examination - Cognitive Function Orientation: Person, Place, Situation, Time Memory: Intact Attention: WNL Concentration: WNL Association: WNL Fund of Knowledge: [facility] Decription of patient's judgement and insights: Fair - Mood Mood: Depressed - Affect Affect: Depressed - Speech Speech: Appropriate - Formal Thought Process Formal Thought Process: No Impairment Psychotic Thoughts and Behaviors: None - Suicidal Ideation Suicidal Ideation: No - Homicidal Ideation Homicidal Ideation: No Goal/Treatment Plan - Goal/Treatment Plan Need for Continued Stay: Remain at risks for inpatient hospitalization, Discharge may exacerbated symptoms, Severe functional impairment Progress Toward Problem(s) and Goals/Treatment Plan: Patient education Supportive therapy Continue treatment as before Wants to go to [facility] for follow-up care after discharge from the hospital. Estimated Date of D/C: 02/26/17 - Smoking Cessation Smoking Cessation Initiated: No
[2017-02-27] MEDS: Albuterol HFA 90 mcg/actuation (8 g) INH PRN ×2 (06:52→21:09)
[2017-02-27] MEDS: Fluticasone-Salmeterol 250-50mcg Diskus INH SCH ×2 (07:45→20:04)
[2017-02-27] MEDS: Budesonide 0.5 mg/2 ml Inhal Susp UD INH SCH ×2 (08:30→20:04)
[2017-02-27] MEDS: Permethrin 5% Cream(60 gm) TOP SCH (09:34)
[2017-02-27] MEDS: Hydrocortisone 1% Cream (30 GM) TOP SCH ×2 (09:34→17:24)
[2017-02-27 13:49] VITALS: RESP 20
--- NOTE | 2017-02-27 14:00 | PCM.PYCHPN ---
Psychiatric Progress Note - Psychiatric Progress Note Patient seen today, length of contact: 15 minutes Patient Chief Complaint: I'm feeling better. I'm also anxious about for follow-up care Problems Identified/Issues Discussed: Patient seen. Chart reviewed. Case discussed with the staff. Issues related to illness and treatment were discussed with the patient. Reported compliant with treatment with no adverse affects. Tolerating treatment very well. Reported feeling little better after start of lithium.also feels little anxious about his follow-up care. Patient wants to go to [facility] for follow-up care after discharge from the hospital. At the time of evaluation, patient was awake alert oriented 3, had no delusions , no auditory or visual hallucinations, no suicidal ideations or homicidal ideations. Medical Problems: COPD Emphysema Diagnostic Results: Reviewed DSM 5 Symptoms Update: Improving with treatment Medication Change: No Medical Record Reviewed: Yes Consults ordered or reviewed: Reviewed Mental Status Examination - Cognitive Function Orientation: Person, Place, Situation, Time Memory: Intact Attention: WNL Concentration: WNL Association: [facility] Fund of Knowledge: [facility] Decription of patient's judgement and insights: Fair - Mood Mood: Anxious - Affect Affect: Other (Appropriate) - Speech Speech: Appropriate - Formal Thought Process Formal Thought Process: No Impairment Psychotic Thoughts and Behaviors: None - Suicidal Ideation Suicidal Ideation: No - Homicidal Ideation Homicidal Ideation: No Goal/Treatment Plan - Goal/Treatment Plan Need for Continued Stay: Remain at risks for inpatient hospitalization, Discharge may exacerbated symptoms, Severe functional impairment Progress Toward Problem(s) and Goals/Treatment Plan: Patient education Supportive therapy Continue treatment as before Wants to go to [facility] for follow-up care after discharge from the hospital. Estimated Date of D/C: 03/01/17 - Smoking Cessation Smoking Cessation Initiated: No
[2017-02-28] MEDS: Albuterol HFA 90 mcg/actuation (8 g) INH PRN ×3 (05:05→18:18)
[2017-02-28] MEDS: Fluticasone-Salmeterol 250-50mcg Diskus INH SCH ×2 (07:50→20:10)
[2017-02-28] MEDS: Budesonide 0.5 mg/2 ml Inhal Susp UD INH SCH ×2 (08:34→20:10)
[2017-02-28] MEDS: Permethrin 5% Cream(60 gm) TOP SCH (09:13)
[2017-02-28] MEDS: Hydrocortisone 1% Cream (30 GM) TOP SCH ×2 (09:13→18:18)
--- NOTE | 2017-02-28 15:09 | PCM.PYCHPN ---
Psychiatric Progress Note - Psychiatric Progress Note Patient seen today, length of contact: 15 minutes Patient Chief Complaint: I'm feeling better. I'm also anxious about my follow-up care Problems Identified/Issues Discussed: Patient seen. Chart reviewed. Case discussed with the staff. Issues related to illness and treatment were discussed with the patient. Reported compliant with treatment with no adverse affects. Tolerating treatment very well. Patient reported feeling better with some anxiety about his follow-up care. Patient wants to go to [facility]. About 2 years ago patient was discharged from [facility] because of allegation of drug trafficking. At the time of evaluation, patient was awake alert oriented 3, had no delusions , no auditory or visual hallucinations, no suicidal ideations or homicidal ideations. Medical Problems: COPD Emphysema Diagnostic Results: Reviewed DSM 5 Symptoms Update: Improving with treatment Medication Change: No Medical Record Reviewed: Yes Consults ordered or reviewed: Reviewed Mental Status Examination - Cognitive Function Orientation: Person, Place, Situation, Time Memory: Intact Attention: WNL Concentration: WNL Association: WNL Fund of Knowledge: [facility] Decription of patient's judgement and insights: Fair - Mood Mood: Anxious - Affect Affect: Other (Appropriate) - Speech Speech: Appropriate - Formal Thought Process Formal Thought Process: No Impairment Psychotic Thoughts and Behaviors: None - Suicidal Ideation Suicidal Ideation: No - Homicidal Ideation Homicidal Ideation: No Goal/Treatment Plan - Goal/Treatment Plan Need for Continued Stay: Remain at risks for inpatient hospitalization, Discharge may exacerbated symptoms, Severe functional impairment Progress Toward Problem(s) and Goals/Treatment Plan: Patient education Supportive therapy Continue treatment as before Wants to go to [facility] for follow-up care after discharge from the hospital. Estimated Date of D/C: 03/01/17 - Smoking Cessation Smoking Cessation Initiated: No
[2017-03-01] MEDS: Albuterol HFA 90 mcg/actuation (8 g) INH PRN (06:12)
[2017-03-01] MEDS: Fluticasone-Salmeterol 250-50mcg Diskus INH SCH ×2 (07:57→19:18)
[2017-03-01] MEDS: Hydrocortisone 1% Cream (30 GM) TOP SCH ×2 (09:32→17:17)
[2017-03-01] MEDS: Permethrin 5% Cream(60 gm) TOP SCH (09:33)
[2017-03-01] MEDS: Budesonide 0.5 mg/2 ml Inhal Susp UD INH SCH ×2 (10:50→19:05)
--- NOTE | 2017-03-01 16:17 | PCM.PYCHPN ---
Psychiatric Progress Note - Psychiatric Progress Note Patient seen today, length of contact: 15 minutes Medication Change: No Medical Record Reviewed: Yes Mental Status Examination - Cognitive Function Orientation: Person, Place, Situation, Time Memory: Intact Attention: WNL Concentration: WNL Association: WNL Fund of Knowledge: WNL - Mood Mood: Anxious - Affect Affect: Other (Appropriate) - Speech Speech: Appropriate - Formal Thought Process Formal Thought Process: No Impairment - Suicidal Ideation Suicidal Ideation: No - Homicidal Ideation Homicidal Ideation: No Goal/Treatment Plan - Goal/Treatment Plan Need for Continued Stay: Remain at risks for inpatient hospitalization, Discharge may exacerbated symptoms, Severe functional impairment Estimated Date of D/C: 03/01/17
[2017-03-02] MEDS: Albuterol HFA 90 mcg/actuation (8 g) INH PRN (02:12)
[2017-03-02 07:44] VITALS: BP 101/65; PULSE 67; TEMP 97.7; O2SAT 97
[2017-03-02] MEDS: Fluticasone-Salmeterol 250-50mcg Diskus INH SCH (08:30)
[2017-03-02] MEDS: Budesonide 0.5 mg/2 ml Inhal Susp UD INH SCH (08:31)
[2017-03-02] MEDS: Hydrocortisone 1% Cream (30 GM) TOP SCH (09:29)
[2017-03-02] MEDS: Permethrin 5% Cream(60 gm) TOP SCH (09:31)
--- NOTE | 2017-03-02 09:39 | PCM.PYCHDC ---
Mental Status Examination - Mental Status Examination Orientation: Person, Place, Situation, Time Memory: Intact Mood: Neutral Affect: Constricted Speech: Soft Attention: WNL Concentration: WNL Language: Word [employer]al Association: WNL Fund of Knowledge: WNL Formal Thought Process: No Impairment Description of patient's judgement and insight: good, fair Psychotic Thoughts and Behaviors: denies any AVH Suicidal Ideation: No Current Homicidal Ideation?: No Discharge Summary - Discharge Note Reason for Hospitalization: This is a 56-year-old male, single with no child, homeless, on SSI. Known from previous admissions The patient reports feeling depressed, anhedonia, having suicidal thoughts and he had a plan of OD on Xanax and heroin. Denies it now but feels as depressed. He also sleeps poorly, eats poorly and his concentration and energy are low. The patient admits to using 5-10 bags intranasal heroin up until yesterday, but he used more in the past. He says that he uses Xanax 2 mg tab. 2-3 times a day now. Started 10 years ago. He describes no withdrawal symptoms yet or seizures ever. He denies drinking alcohol as he quit 6 years ago. He smokes 1/ ppd cigarettes and denies all the other drugs. He has been to detox twice and rehabilitation 4 times and he used longer methadone detox as an outpatient in the past but never been to any methadone maintenance program. The patient's stressors are homelessness and financial problems. He says he is trying to apply for housing and even though he had suicidal ideas he seems future oriented. Since he is an "ex-con," he believes he is not getting any housing help. Past psych history: Around 9 admissions. No suicide attempts Medical history: Knee pain, hip pain, severe asthma. He also has some skin lesions, med consult requested. Consultations:: List each consultation separately and include: 1. Reason for request. 2. Findings. 3. Follow-up Summary of Hospital Course include:: 1. Description of specific treatment plan utilized for patients during their course of treatmen. 2. Summarize the time- course for resolution of acute symptoms and/or regressed behaviors. 3. Describe issues identified and worked on during hospitalization. 4. Describe medication utilized. 5. Describe medical problems identified and treated. 6. 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 Disposition: HOME/ ROUTINE Prescriptions/Medication Reconciliation: Albuterol HFA [Ventolin HFA 90 mcg/actuation (8 g)] 1 puff INH RQ4 PRN #1 inhaler PRN Reason: SOB Aspirin 325 mg PO DAILY #30 tab Escitalopram [Lexapro] 20 mg PO DAILY #30 tab Fluticasone/Salmeterol 250/50 [Advair Diskus 250/50] 1 puff INH RQ12 #1 puff Gabapentin [Neurontin] 300 mg PO BID #60 cap [place] Carbonate [[place] Carbonate 300MG] 300 mg PO BID #60 cap Montelukast [Singulair] 10 mg PO HS #30 tab predniSONE [predniSONE Tab] 10 mg PO DAILY #30 tab traZODone [Desyrel] 100 mg PO HS PRN #60 tab PRN Reason: Insomnia
== END 2017-03-02 10:10 | disposition home or self-care (01) | DRG 430 ==
LOC: C.ER 10:47 → C.5E 13:25
PROVIDERS: ADMIT Psychiatry & Neurology Psychiatry; ATTEND Psychiatry & Neurology Psychiatry
PROC: GZ58ZZZ Individual Psychotherapy, Cognitive-Behavioral (ICD-10-PCS; principal; 2017-02-20)
PROC: GZ56ZZZ Individual Psychotherapy, Supportive (ICD-10-PCS; 2017-02-20)
DX: F33.2 Major depressive disorder, recurrent severe without psychotic features (principal); I82.5Z3 Chronic embolism and thrombosis of unspecified deep veins of distal lower extremity, bilateral; R45.851 Suicidal ideations; F11.23 Opioid dependence with withdrawal; F13.10 Sedative, hypnotic or anxiolytic abuse, uncomplicated; J43.9 Emphysema, unspecified; F17.210 Nicotine dependence, cigarettes, uncomplicated; F41.9 Anxiety disorder, unspecified; L30.8 Other specified dermatitis; N28.1 Cyst of kidney, acquired; M25.559 Pain in unspecified hip; M25.569 Pain in unspecified knee; G47.9 Sleep disorder, unspecified; Z59.0 Homelessness

== ENCOUNTER 2017-07-29 07:43 | Inpatient (IN) | payer MEDICAID, OTHER ==
[2017-07-29 07:43] VITALS: BMI 23.4
--- NOTE | 2017-07-29 09:01 | C.PDOC ---
History Of Present Illness 57 year old male with PMHx of depression, heroin use presents to the ED c/o increased depression and anxiety over the past week. Patient denies any SI or plan at time but states he has had them in the past. Patient denies HI, hallucinations, CP, SOB, numbness, weakness. Time Seen by Provider: 07/29/17 07:47 Chief Complaint (Nursing): Psychiatric Evaluation History Per: Patient History/Exam Limitations: no limitations Onset/Duration Of Symptoms: Days Current Symptoms Are (Timing): Still Present Suicide/Self Injury Attempted (Context): None Associated Symptoms: Anxiety, Depression. denies: Suicidal Thoughts, Suicidal Plan Recent travel outside of the [place]: No Additional History Per: Patient Past Medical History Reviewed: Historical Data, Nursing Documentation, Vital Signs Vital Signs: Last Vital Signs Temp 98.1 F 07/29/17 07:45 Pulse 129 H 07/29/17 07:45 Resp 20 07/29/17 07:45 BP 97/62 L 07/29/17 07:45 Pulse Ox 94 L 07/29/17 09:19 - Medical History PMH: Anxiety, Arthritis, Asthma, COPD, Depression, Emphysema Denies: Diabetes, Hepatitis, HIV, HTN, Chronic Kidney Disease, Seizures, Sexually Transmitted Disease Surgical History: No Surg Hx - [facility] INDIVIDUAL PSYCHOTHERAPY, COGNITIVE-BEHAVIORAL (02/20/17) INDIVIDUAL PSYCHOTHERAPY, SUPPORTIVE (02/20/17) Family History: States: Unknown Family Hx - Social History Hx Tobacco Use: Yes Hx Alcohol Use: No Hx Substance Use: Yes - Immunization History Hx Tetanus Toxoid Vaccination: No Hx Influenza Vaccination: Yes (01/2017) Hx Pneumococcal Vaccination: Yes Review Of Systems Constitutional: Negative for: Fever, Chills Cardiovascular: Negative for: Chest Pain Respiratory: Negative for: Shortness of Breath Gastrointestinal: Negative for: Vomiting, Abdominal Pain Skin: Negative for: Rash Neurological: Negative for: Weakness, Numbness Psych: Positive for: Anxiety, Depression. Negative for: Suicidal ideation Physical Exam - Physical Exam Appears: Non-toxic, No Acute Distress, Unkempt Skin: Normal Color, Warm, Dry Head: Atraumatic, Normacephalic Eye(s): bilateral: Normal Inspection, PERRL, EOMI Nose: No Discharge Oral Mucosa: Moist Neck: Normal ROM, Supple Chest: Symmetrical Cardiovascular: Rhythm Regular, No Murmur Respiratory: Normal Breath Sounds, No Rales, No Rhonchi, No Wheezing Gastrointestinal/Abdominal: Soft, No Tenderness, No Guarding, No Rebound Extremity: Normal ROM, No Tenderness, No Swelling Neurological/Psych: Oriented x3, Normal Speech, Normal Motor Gait: Steady ED Course And Treatment - Laboratory Results Result Diagrams: 07/29/17 09:06 07/29/17 09:06 O2 Sat by Pulse Oximetry: 94 (on RA) Pulse Ox Interpretation: Normal Medical Decision Making Medical Decision Making: Plan: * Labs * Xanax 1 mg PO * 1:1 Obs * UA The case was discussed with psych oncall and they agree to admit the patient for major depressive disorder. Disposition - Disposition Disposition: HOSPITALIZED Disposition Time: 10:29 Condition: FAIR Forms: [facility] (Italian) - POA Present On Arrival: None - Clinical Impression Clinical Impression: Moderate major depression, single episode - PA / BOARD CERTIFIED FAMILY PHYSICIAN / Resident Statement MD/DO has reviewed & agrees with the documentation as recorded. - Scribe Statement The provider has reviewed the documentation as recorded by the Scribe Be Sagastume All medical record entries made by the Scribe were at my direction and personally dictated by me. I have reviewed the chart and agree that the record accurately reflects my personal performance of the history, physical exam, medical decision making, and the department course for this patient. I have also personally directed, reviewed, and agree with the discharge instructions and disposition.
[2017-07-29 09:11] LABS: BASO # 0.1 K/uL (0.0-0.2); BASO % 0.9 % (0.0-2.0); EOS # 0.3 K/uL (0.0-0.7); EOS % 4.6 % (0.0-4.0); HEMOGLOBIN 12.2 g/dL (12.0-18.0); LYMPH # 1.1 K/uL (1.0-4.3); LYMPH % 14.7 % (20.0-40.0); MEAN CELL VOLUME 87.5 fL (80.0-94.0); MEAN CORPUSCULAR HEMOGLOBIN 29.6 pg (27.0-31.0); MEAN CORPUSCULAR HGB CONC 33.8 g/dL (33.0-37.0); MEAN PLATELET VOLUME 7.9 fL (7.2-11.7); MONO # 0.7 K/uL (0.0-0.8); MONO % 9.9 % (0.0-10.0); NEUT % 69.9 % (50.0-75.0); NRBC % 0.1 % (0.0-2.0); RBC 4.12 Mil/uL (4.40-5.90); WHITE BLOOD COUNT 7.2 K/uL (4.8-10.8)
[2017-07-29 09:15] LABS: SQUAMOUS EPITHIAL < 1 /hpf (0-5); URINE BACTERIA RARE (<OCC); URINE BILIRUBIN NEGATIVE (NEGATIVE); URINE BLOOD 1+ (NEGATIVE); URINE CLARITY Clear (Clear); URINE COLOR Yellow (YELLOW); URINE GLUCOSE (UA) NORMAL (Normal); URINE LEUKOCYTE ESTERASE NEG Leu/uL (Negative); URINE PROTEIN NEGATIVE (NEGATIVE); URINE UROBILINOGEN NORMAL mg/dL (0.2-1.0)
[2017-07-29 09:23] LABS: ALBUMIN 3.5 g/dL (3.5-5.0); ALT/SGPT 20 U/L (21-72); AST/SGOT 24 U/L (17-59); BLOOD UREA NITROGEN 15 mg/dL (9-20); CALCIUM 9.1 mg/dl (8.6-10.4); GFR AFRICAN-AMERICAN > 60; GFR NON-AFRICAN AMERICAN > 60
[2017-07-29 09:34] LABS: BARBITURATES, UR NEGATIVE (NEGATIVE); BENZODIAZEPINES, UR NEGATIVE (NEGATIVE); PHENCYCLIDINE, UR NEGATIVE (NEGATIVE)
[2017-07-29 10:35] LABS: OPIATES, UR POSITIVE (NEGATIVE)
--- NOTE | 2017-07-29 17:06 | PCM.PSYCH ---
Initial Psychiatric Evaluation - Initial Psychiatric Evaluation Type of Admission: Voluntary Legal Status: Capacity Chief Complaint (in patient's own words): I was depressed and suicidal, came for help. History of Present Illness and Precipitating Events: Patient is a 57 years old, single, unemployed, homeless, male with history of depression and substance use, noncompliant with treatment. Patient was admitted due to worsening symptoms of depression and suicidal ideations with plan to overdose. Patient with history of depression for last many years, noncompliant with treatment. Reported decreased sleep and appetite, lost some weight, suicidal ideations frequently and recently with a plan to overdose. Patient was last discharged from [facility] psych unit in February 2017 but was noncompliant with treatment since then. Denied any psychotic, manic or anxiety symptoms. Patient reported using heroin 5-10 bags intranasally. Last used was last night 5 packs. According to patient he was using more in the past. Patient denied use of any other drugs but according to previous record patient was also drinking alcohol in the past and Xanax until his last admissions. Patient also smokes 6 cigarettes daily, refuses to take nicotine patch. Patient was born in [place], has high school graduation, was working in the past, currently on SSI. Never and has no children. Currently homeless. Current Medications: Active Medications Generic Name Dose Route Start Last Admin Trade Name Freq PRN Reason Stop Dose Admin Albuterol 1 puff 07/29/17 16:57 Ventolin Hfa 90 Mcg/Actuation (8 G) INH RQ4 PRN Shortness of Breath Aspirin 325 mg 07/29/17 17:00 Ecotrin PO DAILY FARTUN Clonidine HCl 0.1 mg 07/29/17 16:53 Catapres PO Q8 PRN COWS Score More or Equal to 5 Dicyclomine HCl 10 mg 07/29/17 16:55 Bentyl PO Q6 PRN Other Escitalopram Oxalate 10 mg 07/29/17 17:00 Lexapro PO DAILY FARTUN Gabapentin 300 mg 07/29/17 18:00 Neurontin PO BID FARTUN Loperamide HCl 2 mg 07/29/17 16:53 Imodium PO Q8 PRN Diarrhea Ondansetron HCl 4 mg 07/29/17 16:53 Zofran Tab PO Q8 PRN Nausea/Vomiting Fluticasone/Salmeterol 1 puff 07/29/17 20:00 Advair Diskus 250/50 INH RQ12 FARTUN Trazodone HCl 50 mg 07/29/17 22:00 Desyrel PO HS [facility] Past Psychiatric History - Past Psychiatric History Previous Treatment History: Inpatient At [facility]: At [facility] History of Abuse: None reported History of ETOH/Drug Use: See HPI History of Family Illness: None reported Pertinent Medical Hx (Current Medical&Sleep Prob, Allergies): Allergies Allergy/AdvReac Type Severity Reaction Status Date / Time No Known Allergies Allergy Verified 07/29/17 07:48 Umeclidinium Mccarley [Incruse Ellipta] 1 puff IH DAILY 02/20/17 Albuterol HFA [Ventolin HFA 90 mcg/actuation (8 g)] 1 puff INH RQ4 PRN #1 inhaler 03/02/17 Montelukast [Singulair] 10 mg PO HS #30 tab 03/02/17 predniSONE [predniSONE Tab] 10 mg PO DAILY #30 tab 03/02/17 Asthma COPD Emphysema Review of Systems - Psychiatric Psychiatric: Depression Mental Status Examination - Personal Presentation Personal Presentation: Looks stated age - Affect Affect: Depressed - Motor Activity Motor Activity: Calm - Reliability in Providing Information Reliability in Providing Information: Fair - Speech Speech: Organized - Mood Mood: Depressed - Formal Thought Process Formal Thought Process: No Impairment - Hallucinations/Delusions Hallucinations: Other (None reported) Delusions: Other - Obsessions/Compulsions Obsessions: None Compulsions: None - Cognitive Functions Orientation: Person, Place, Situation, Time Sensorium: Alert Attention/Concentration: Attentive Abstract Thinking: Kinsey Estimate of Intelligence: Average Judgement: Intact, as evidence by: Insight regarding need for hospitalization Memory: Recent intact, as evidence by: 3/3 object recall, Remote intact, as evidenced by: Ability to recall historical events - Risk Risk: Withdrawal, Diminished functioning - Strength & Assets Inventory Strength & Assets Inventory: Cooperative - Limitations Limitations: Other (Homeless) DSM 5 DX - DSM 5 DSM 5 Diagnosis: Major depressive disorder recurrent severe without psychotic features Opiate use disorder severe - Recommended/Plan of Treatment Treatment Recommendations and Plan of Treatment: Patient education Supportive therapy Will start Lexapro For depression Other when necessary medications Gabapentin, trazodone Medications or asthma CBT for relapse prevention [place] for abstinence Will start methadone for opiate withdrawal symptoms. Projected ELOS: 8-10 - Smoking Cessation Smoking Cessation Initiated: No Reason for not providing: Patient refused
[2017-07-29] MEDS: Albuterol HFA 90 mcg/actuation (8 g) INH PRN (18:03)
[2017-07-29] MEDS: Aspirin 325 mg EC Tablets PO SCH (18:05)
[2017-07-29] MEDS: Fluticasone-Salmeterol 250-50mcg Diskus INH SCH (20:48)
[2017-07-30] MEDS: Albuterol HFA 90 mcg/actuation (8 g) INH PRN (08:12)
[2017-07-30] MEDS: Fluticasone-Salmeterol 250-50mcg Diskus INH SCH ×2 (08:12→20:30)
[2017-07-30] MEDS: Aspirin 325 mg EC Tablets PO SCH (10:13)
--- NOTE | 2017-07-30 12:31 | PCM.PYCHPN ---
Psychiatric Progress Note - Psychiatric Progress Note Patient seen today, length of contact: 15 min Patient Chief Complaint: I am not feeling better due to my breathing. Problems Identified/Issues Discussed: Patient was seen and evaluated. Case discussed with staff. This morning, patient came to the nursing station stating that he was having a lot of difficulty breathing, and requested his inhaler. Inhaler was given, with relief of symptoms shortly after. Patient denied any persistent respiratory distress, cough or wheezing afterwards. Besides this event, patient states that he feels better then yesterday, as his mood has improved somewhat. Patient is compliant with his medications and denies any side-effects. Aftercare discussed and psychoeducation provided. Medical Problems: Asthma COPD Emphysema Diagnostic Results: Reviewed DSM 5 Symptoms Update: Improving with treatment. Medication Change: No Medical Record Reviewed: Yes Mental Status Examination - Cognitive Function Orientation: Person, Place, Situation, Time Memory: Intact Attention: WNL Concentration: WNL Association: WN Fund of Knowledge: [facility] Decription of patient's judgement and insights: Fair - Mood Mood: Depressed - Affect Affect: Depressed - Speech Speech: Appropriate - Formal Thought Process Formal Thought Process: No Impairment Psychotic Thoughts and Behaviors: None - Suicidal Ideation Suicidal Ideation: No - Homicidal Ideation Homicidal Ideation: No Goal/Treatment Plan - Goal/Treatment Plan Need for Continued Stay: Remain at risks for inpatient hospitalization, Discharge may exacerbated symptoms, Severe functional impairment Progress Toward Problem(s) and Goals/Treatment Plan: Patient education Supportive therapy Continue treatment as before. CBT for relapse prevention [place] for abstinence Estimated Date of D/C: 08/05/17 - Smoking Cessation Smoking Cessation Initiated: No
[2017-07-31] MEDS: Albuterol HFA 90 mcg/actuation (8 g) INH PRN ×4 (04:41→20:16)
[2017-07-31] MEDS: Fluticasone-Salmeterol 250-50mcg Diskus INH SCH ×2 (08:46→20:19)
[2017-07-31] MEDS: Aspirin 325 mg EC Tablets PO SCH (10:26)
--- NOTE | 2017-07-31 21:50 | PCM.PYCHPN ---
Psychiatric Progress Note - Psychiatric Progress Note Patient seen today, length of contact: 15 min Patient Chief Complaint: "So so" Problems Identified/Issues Discussed: The pt is seen, chart reviewed, case discussed with staff. Support given, CBT and [place] used briefly No new symptoms reported, improving slowly and needs more time No SEs from medications, risks discussed. After care discussed Medication Change: Yes (add prednisone bc he takes it, inc trazodon) Medical Record Reviewed: Yes Mental Status Examination - Cognitive Function Orientation: Person, Place, Situation, Time Memory: Intact Attention: WNL Concentration: WNL Association: WNL Fund of Knowledge: WNL - Mood Mood: Depressed - Affect Affect: Depressed - Speech Speech: Appropriate - Formal Thought Process Formal Thought Process: No Impairment - Suicidal Ideation Suicidal Ideation: No - Homicidal Ideation Homicidal Ideation: No Goal/Treatment Plan - Goal/Treatment Plan Need for Continued Stay: Remain at risks for inpatient hospitalization, Discharge may exacerbated symptoms, Severe functional impairment Progress Toward Problem(s) and Goals/Treatment Plan: Continue medications Support and psychoeducation daily Attend groups and activities daily After care planning by ASHLEY Estimated Date of D/C: 08/05/17
[2017-08-01] MEDS: Albuterol HFA 90 mcg/actuation (8 g) INH PRN ×2 (05:49→19:13)
[2017-08-01] MEDS: Fluticasone-Salmeterol 250-50mcg Diskus INH SCH ×2 (08:21→19:13)
[2017-08-01] MEDS: Aspirin 325 mg EC Tablets PO SCH (10:08)
[2017-08-01] MEDS ORDERED: Albuterol-Ipratrop 3 mg / 0.5 (3 ml) UD INH PRN (13:00)
--- NOTE | 2017-08-01 23:51 | PCM.PYCHPN ---
Psychiatric Progress Note - Psychiatric Progress Note Patient seen today, length of contact: 15 min Patient Chief Complaint: "Not well" Problems Identified/Issues Discussed: The pt is seen, chart reviewed, case discussed with staff. The pt is compliant with medications and reports no side-effects. Symptoms are improving but needs more time to stabilize. After care discussed, support and psychoeducation given. Medication Change: Yes (nebulizer) Medical Record Reviewed: Yes Mental Status Examination - Cognitive Function Orientation: Person, Place, Situation, Time Memory: Intact Attention: WNL Concentration: WNL Association: WNL Fund of Knowledge: WNL - Mood Mood: Depressed - Affect Affect: Depressed - Speech Speech: Appropriate - Formal Thought Process Formal Thought Process: No Impairment - Suicidal Ideation Suicidal Ideation: No - Homicidal Ideation Homicidal Ideation: No Goal/Treatment Plan - Goal/Treatment Plan Need for Continued Stay: Remain at risks for inpatient hospitalization, Discharge may exacerbated symptoms, Severe functional impairment Progress Toward Problem(s) and Goals/Treatment Plan: Continue medications Support and psychoeducation daily Attend groups and activities daily After care planning by ASHLEY Estimated Date of D/C: 08/05/17
[2017-08-02] MEDS: Albuterol HFA 90 mcg/actuation (8 g) INH PRN ×4 (06:48→21:09)
[2017-08-02] MEDS: Fluticasone-Salmeterol 250-50mcg Diskus INH SCH ×2 (08:01→19:08)
[2017-08-02 09:05] VITALS: O2SAT 99
--- NOTE | 2017-08-02 09:39 | PCM.BM ---
<Kimberly Metz - Last Filed: 08/02/17 09:37> Treatment Plan Problems - Problems identified on initial assessmt Depression Date Initiated: 08/02/17 Time Initiated: 09:38 Assessment reference: NA Status: Active Substance Abuse Date Initiated: 08/02/17 Time Initiated: 09:38 Assessment reference: NA Status: Active Treatment assets and liabiliti Patient Assests: adapts well, cooperative, ADL independent, negotiates basic needs, cognitively intact Patient Liabilities: live alone (homeless), substance abuse (Heroin), medical problems (COPD, Asthma) - Milieu Protocol Maintain good personal hygiene: daily Encourage regular showers, daily Remind patient to perform daily oral care, daily Assist patient to perform ADL's (self) Conduct patient checks and document Observation sheet: Q15 minutes (safety) Maintain personal safety: every shift Educate patient to report safety concerns to staff, every shift Monitor environment for contraband/sharps Medication safety: Monitor for expected outcome, potential side effects: every shift, Assess barriers to learning: every shift, Assess readiness for medication education: every shift Milieu Narrative: Continue medications Support and psychoeducation daily Attend groups and activities daily After care planning by Discharge/Continuing Care - Treatment Team Participation Patient/Family/SO Statement: Continue medications Support and psychoeducation daily Attend groups and activities daily After care planning by <Jeanne Marino - Last Filed: 08/02/17 11:38> Family Contact Family involvement: Famliy/SO not involved - Goals for Treatment Patient goals for treatment: "I need help with my depression." Discharge/Continuing Care - Education Needs Education Needs: Patient Medication, Patient Coping Skills, Patient Placement options, Patient Community resources - Discharge Discharge Criteria: Tolerates medication w/o severe side effects, Reduction of target symptoms Discharge to:: Assisted - Treatment Team Participation Discussed with Family/SO: No Was Patient/Family/SO present at Treatment Team Meeting: Yes <Joe Mckeon - Last Filed: 08/03/17 00:36> - Diagnosis (1) Depression Status: Acute Interventions: 08/03/17 00:36 * Assess/adjust medications daily and /or as needed * See patient on an individual basis 7x/week to assess symptoms of depression * Monitor for side effects & effectiveness of medications *
[2017-08-02] MEDS: Aspirin 325 mg EC Tablets PO SCH (09:45)
--- NOTE | 2017-08-02 10:21 | PCM.PYCHPN ---
Psychiatric Progress Note - Psychiatric Progress Note Patient seen today, length of contact: 15 min Patient Chief Complaint: I am feeling anxious.' Problems Identified/Issues Discussed: Patient seen and evaluated, chart reviewed and discussed with the nurse. Patient still reports the anxiety and irritability . He denies any auditory or visual hallucinations. He remained calm and cooperative. Patient is compliant with medications and denies any side effects. Symptoms are improving but need more time to stabilize. Support and psychoeducation given. Medication Change: Yes (nebulizer) Medical Record Reviewed: Yes Mental Status Examination - Cognitive Function Orientation: Person, Place, Situation, Time Memory: Intact Attention: WNL Concentration: WNL Association: WNL Fund of Knowledge: Poor - Mood Mood: Depressed, Anxious - Affect Affect: Depressed - Speech Speech: Appropriate - Formal Thought Process Formal Thought Process: No Impairment - Suicidal Ideation Suicidal Ideation: No - Homicidal Ideation Homicidal Ideation: No Goal/Treatment Plan - Goal/Treatment Plan Need for Continued Stay: Remain at risks for inpatient hospitalization, Discharge may exacerbated symptoms, Severe functional impairment Progress Toward Problem(s) and Goals/Treatment Plan: Major depressive disorder recurrent severe without psychotic features Opiate use disorder severe Patient education Supportive therapy Lexapro For depression Other when necessary medications Gabapentin, trazodone Medications or asthma CBT for relapse prevention [place] for abstinence Will start methadone for opiate withdrawal symptoms. Estimated Date of D/C: 08/05/17 - Smoking Cessation Smoking Cessation Initiated: No
[2017-08-03 05:42] VITALS: TEMP 97.8
[2017-08-03] MEDS: Albuterol HFA 90 mcg/actuation (8 g) INH PRN ×3 (05:55→20:03)
[2017-08-03] MEDS: Fluticasone-Salmeterol 250-50mcg Diskus INH SCH ×2 (07:38→20:02)
[2017-08-03] MEDS: Aspirin 325 mg EC Tablets PO SCH ×2 (09:53→13:23)
--- NOTE | 2017-08-04 00:25 | PCM.PYCHPN ---
Psychiatric Progress Note - Psychiatric Progress Note Patient seen today, length of contact: 15 min Patient Chief Complaint: I am still feeling anxious.' Problems Identified/Issues Discussed: Patient seen and evaluated, chart reviewed and discussed with the nurse. Patient still reports the anxiety and irritability. Patient is compliant with medications and denies any side effects. Symptoms are improving but need more time to stabilize. Support and psychoeducation given. Medication Change: Yes (start depakote) Medical Record Reviewed: Yes Mental Status Examination - Cognitive Function Orientation: Person, Place, Situation, Time Memory: Intact Attention: WNL Concentration: WNL Association: WNL Fund of Knowledge: Poor - Mood Mood: Anxious - Affect Affect: Constricted, Depressed - Speech Speech: Appropriate - Formal Thought Process Formal Thought Process: No Impairment - Suicidal Ideation Suicidal Ideation: No - Homicidal Ideation Homicidal Ideation: No Goal/Treatment Plan - Goal/Treatment Plan Need for Continued Stay: Remain at risks for inpatient hospitalization, Discharge may exacerbated symptoms, Severe functional impairment Progress Toward Problem(s) and Goals/Treatment Plan: Major depressive disorder recurrent severe without psychotic features Opiate use disorder severe Patient education Supportive therapy D/C Lexapro Start Depakote 250 mg PO BID Increase Neurontin 400 mg PO TID trazodone Medications or asthma CBT for relapse prevention [place] for abstinence methadone for opiate withdrawal symptoms. Estimated Date of D/C: 08/05/17 - Smoking Cessation Smoking Cessation Initiated: No
[2017-08-04] MEDS: Albuterol HFA 90 mcg/actuation (8 g) INH PRN (06:14)
[2017-08-04 06:30] VITALS: BP 111/78; PULSE 96; RESP 20
[2017-08-04] MEDS: Fluticasone-Salmeterol 250-50mcg Diskus INH SCH (08:35)
[2017-08-04] MEDS ORDERED: Divalproex 250 mg DR Tab PO SCH (10:00)
[2017-08-04] MEDS: Aspirin 325 mg EC Tablets PO SCH (10:33)
--- NOTE | 2017-08-04 10:56 | PCM.PYCHPN ---
Psychiatric Progress Note - Psychiatric Progress Note Patient seen today, length of contact: 15 min Patient Chief Complaint: I am feeling little better Problems Identified/Issues Discussed: Patient seen and evaluated, chart reviewed and discussed with the nurse. Patient still reports the anxiety and irritability. Patient is compliant with medications and denies any side effects. Symptoms are improving but need more time to stabilize. Support and psychoeducation given. As per the staff, pt was found to be infested with lice. Pt will be treated with permethrin cream. Medication Change: Yes (permethrin cream) Medical Record Reviewed: Yes Mental Status Examination - Cognitive Function Orientation: Person, Place, Situation, Time Memory: Intact Attention: WNL Concentration: WNL Association: WNL Fund of Knowledge: WNL - Mood Mood: Anxious - Affect Affect: Constricted, Depressed - Speech Speech: Appropriate - Formal Thought Process Formal Thought Process: Flight of ideas, Circumstantial - Suicidal Ideation Suicidal Ideation: No - Homicidal Ideation Homicidal Ideation: No Goal/Treatment Plan - Goal/Treatment Plan Need for Continued Stay: Remain at risks for inpatient hospitalization, Discharge may exacerbated symptoms, Severe functional impairment Progress Toward Problem(s) and Goals/Treatment Plan: Major depressive disorder recurrent severe without psychotic features Opiate use disorder severe Patient education Supportive therapy Depakote 250 mg PO BID Increase Neurontin 400 mg PO TID trazodone Medications or asthma CBT for relapse prevention [place] for abstinence methadone for opiate withdrawal symptoms. Estimated Date of D/C: 08/05/17
[2017-08-04] MEDS ORDERED: Permethrin 5% Cream(60 gm) TOP ONE (12:00)
--- NOTE | 2017-08-05 23:07 | PCM.PYCHDC ---
Mental Status Examination - Mental Status Examination Orientation: Person, Place, Situation, Time Memory: Intact Mood: Neutral Affect: Constricted Speech: Soft Attention: WNL Concentration: WNL Association: WNL Fund of Knowledge: WNL Formal Thought Process: No Impairment Description of patient's judgement and insight: good, fair Psychotic Thoughts and Behaviors: denies any AVH Suicidal Ideation: No Current Homicidal Ideation?: No Discharge Summary - Discharge Note Reason for Hospitalization: Patient is a 57 years old, single, unemployed, homeless, male with history of depression and substance use, noncompliant with treatment. Patient was admitted due to worsening symptoms of depression and suicidal ideations with plan to overdose. Patient with history of depression for last many years, noncompliant with treatment. Reported decreased sleep and appetite, lost some weight, suicidal ideations frequently and recently with a plan to overdose. Patient was last discharged from [facility] psych unit in February 2017 but was noncompliant with treatment since then. Denied any psychotic, manic or anxiety symptoms. Patient reported using heroin 5-10 bags intranasally. Last used was last night 5 packs. According to patient he was using more in the past. Patient denied use of any other drugs but according to previous record patient was also drinking alcohol in the past and Xanax until his last admissions. Patient also smokes 6 cigarettes daily, refuses to take nicotine patch. Patient was born in [place], has high school graduation, was working in the past, currently on SSI. Never and has no children. Currently homeless. Consultations:: List each consultation separately and include: 1. Reason for request. 2. Findings. 3. Follow-up Summary of Hospital Course include:: 1. Description of specific treatment plan utilized for patients during their course of treatmen. 2. Summarize the time- course for resolution of acute symptoms and/or regressed behaviors. 3. Describe issues identified and worked on during hospitalization. 4. Describe medication utilized. 5. Describe medical problems identified and treated. 6. Reassessment of suicide risk Summary of Hospital Course: During the course of his stay, patient (pt) started progressively improving, however, today; he became very irritable and agitated. He became aggressive and agitated with the staff and demanded to get discharged AMA. He signed himself AMA. However he denied any suicidal ideation or homicidal ideation and denied any auditory or visual hallucinations. - Diagnosis (1) Depression Status: Acute - Final Diagnosis (DSM 5) Condition upon Discharge: FAIR DSM 5: Major depressive disorder recurrent severe without psychotic features Opiate use disorder severe Disposition: AGAINST MEDICAL ADVICE Follow-up Treatment Plan: Education: Pt was educated and counseled about the risks and benefits of taking and not taking medications. Pt was educated and counseled about the risks of drinking and abusing drugs. Pt was educated and counseled to go to the ER or call 911 if pt develop suicidal ideation or homicidal ideation, worsening of symptoms or severe side effects of the meds. - Smoking Cessation Smoking Cessation Medication prescribed: No - Antipsychotic Medications Pt discharged on 2 or more routine antipsychotic medications: No
== END 2017-08-04 15:18 | disposition left against medical advice (07) | DRG 430 ==
LOC: C.ER 07:43 → OBSVTOIN 10:25 → C.5E 10:25
PROC: GZ3ZZZZ Medication Management (ICD-10-PCS; principal; 2017-07-29)
PROC: GZ56ZZZ Individual Psychotherapy, Supportive (ICD-10-PCS; 2017-07-29)
PROC: HZ81ZZZ Medication Management for Substance Abuse Treatment, Methadone Maintenance (ICD-10-PCS; 2017-07-29)
DX: F33.2 Major depressive disorder, recurrent severe without psychotic features (principal); F11.20 Opioid dependence, uncomplicated; R45.851 Suicidal ideations; J43.9 Emphysema, unspecified; F17.210 Nicotine dependence, cigarettes, uncomplicated; F41.9 Anxiety disorder, unspecified; Z59.0 Homelessness; Z79.899 Other long term (current) drug therapy; Z91.19 Patient's noncompliance with other medical treatment and regimen